=== PATIENT | male | born 1990 | race Caucasian/White ===

== ENCOUNTER 2023-07-24 13:18 | Inpatient (IN) | payer OTHER, SELFPAY ==
--- NOTE | ~2023-07-24 | CT_ITS ---
EXAMINATION: CT SOFT TISSUE NECK WITHOUT CONTRAST CLINICAL INFORMATION: Right facial redness and swelling. Question parotiditis. Abscess. COMPARISON: CT neck 01/11/2012. TECHNIQUE: Helical imaging was performed in the axial plane with generation of coronal and sagittal reformatted images. This CT examination was performed using dose optimization techniques as appropriate, variously including the following: *Automated exposure control *Adjustment of mA and/or kV according to patient size (this includes techniques or standardized protocols for targeted exams where dose is matched to indication/reason for exam; i.e. extremities or head) *Use of iterative reconstruction technique DLP: 593 mGy-cm FINDINGS: The diagnostic accuracy of this examination is limited due to the absence of intravenous contrast. There is asymmetric stranding within the subcutaneous soft tissues primarily within the right infratemporal fossa. The etiology of this finding is uncertain. There is some thickening and inflammation extends along the course of the right parotid duct. No clear evidence of a discrete calcification along the course of the parotid duct. The parotid gland is otherwise grossly symmetric with respect to the contralateral side. There are multiple asymmetrically enlarged right level I and II cervical lymph nodes. Pharyngeal mucosal spaces are symmetric. Parapharyngeal and retromaxillary fat is preserved. Admissions Manager Rn spaces are grossly symmetric. The tongue base and epiglottis are normal. Preepiglottic fat is preserved. Glottic and subglottic airways are patent. The thyroid gland is normal and the remainder of the visualized visceral soft tissues are normal. Lung apices are clear. The aortic arch apex is unremarkable. Carotid spaces are unremarkable. No acute osseous finding. Specifically no worrisome lytic or blastic osseous lesion. Grossly no spinal canal compromise. The skull base is grossly intact. No mastoid or middle ear effusion. Limited visualization of the intracranial anatomy reveals no abnormal finding. CT/CT soft tissue neck wo IV con IMPRESSION: The diagnostic accuracy of this examination is limited due to the absence of intravenous contrast. There is asymmetric stranding within the subcutaneous soft tissues primarily within the right infratemporal fossa consistent with edema or cellulitis. There is some thickening and inflammation extends along the course of the right parotid duct. No clear evidence of a discrete calcification along the course of the parotid duct. The parotid gland is otherwise grossly symmetric with respect to the contralateral side. There are multiple asymmetrically enlarged likely reactive right level I and II cervical lymph nodes.
[2023-07-24 14:23] VITALS: BP 137/85; PULSE 84; RESP 18; TEMP 37.1; O2SAT 97; BMI 26.2
--- NOTE | 2023-07-24 14:58 | ED_ITS ---
HPI - General Adult General Chief complaint: Skin/Abscess/Foreign Body Stated complaint: Dental Abscess Infection Time Seen by Provider: 07/24/23 19:53 Source: patient Mode of arrival: ambulatory Limitations: no limitations History of Present Illness HPI narrative: Patient comes here with redness and swelling of the right temporal area spreading to the right side face started about 3 days ago with fever and chills no dental pain redness is spreading very fast to the right orthodoxy and right side of the neck unable to open mouth widely no open wound no history of MRSA infection Related Data Home Medications Medication Instructions Recorded Confirmed gabapentin 400 mg capsule 400 mg PO TID 07/24/23 07/24/23 ibuprofen 600 mg tablet 600 mg PO Q6H PRN Pain 07/24/23 07/24/23 quetiapine 50 mg tablet 50 mg PO BEDTIME 07/24/23 07/24/23 trazodone 100 mg tablet 100 mg PO BEDTIME PRN Insomnia 07/24/23 07/24/23 Allergies Allergy/AdvReac Type Severity Reaction Status Date / Time coconut Allergy Severe ANAPHYLAXIS Verified 07/24/23 14:23 Penicillins [PENICILLINS] Allergy Unknown HIVES/DIFFICULTY Verified 07/24/23 14:23 BREATHING Review of Systems 2 Review of Systems: Yes all other systems are reviewed and are negative PMFSH Past Medical History Medical History Skin infection Social History Social History Household Members: Other Household Members Other:: [facility] Housing: House Do you presently have visiting nurse or other home services: No Alcohol intake: former Patient Tobacco Use Status: Current everyday Tobacco user Tobacco use type: Cigarette Cigarettes Per Day: 10 Second Hand Smoke Exposure: No service: No Physical Exam ED Vital Signs: Vital Signs - 24 hr 07/24/23 14:23 07/24/23 18:00 Temperature 98.7 F 98.4 F Pulse Rate 84 80 Respiratory Rate 18 16 Blood Pressure 137/85 139/86 Pulse Oximetry 97 100 Oxygen Delivery Method Room Air Room Air BMI result Body Mass Index 26.2 Appearance: Alert. Oriented X3. No acute distress. ENT: Pharynx normal. Oral Mucosa moist no gum tenderness or swelling no dental pain diffuse erythematous swelling with induration of the right pre auricle and orthodoxy area tympanic membrane intact mastoid nontender Neck: Normal inspection. Neck supple. CVS: Normal heart rate and rhythm. Pulses normal. Respiratory: No respiratory distress. Equal air entry bilateral, Abdomen: Soft and nontender. Bowel sounds are present, no mass palpable, no CVA tenderness Skin: Skin warm and dry. Facial cellulitis as described Normal skin turgor. Extremities: No lower extremity edema. No calf tenderness Neuro: Oriented X 3. Course Course Course Narrative: RME: 32 yold male presents to the ED for right sided facial swelling/redness in front of ear and behing right ear after hit right side of face on door while bending now. patient states no chest pain or shortness of breath. Positive for tenderness and redness on mastoid of right ear and redness/swelling in front of right rear. negative for neck swelling or jaw swelling. labs, mastoid and soft tissude ortdered. most likely cellulitlits. Medications Administered Generic Name Dose Route Start Last Admin Trade Name Freq PRN Reason Stop Dose Admin Enoxaparin Sodium 40 mg 07/24/23 21:00 07/26/23 20:49 Enoxaparin Sodium 40 Mg/0.4 Ml Syringe SUBCUT Not Given Q24H MELA Gabapentin 400 mg 07/24/23 21:00 07/27/23 15:30 Gabapentin 400 Mg Capsule PO 400 mg TID MELA Administration Hydromorphone HCl 1 mg 07/27/23 07:31 07/27/23 18:09 Hydromorphone Hcl 1 Mg/Ml Syringe IVPUSH 1 mg Q2H PRN Administration severe pain Protocol Metronidazole 500 mg in 100 mls @ 100 mls/hr 07/25/23 08:15 07/27/23 10:31 Flagyl IV Infused Q12H MELA Infusion Levofloxacin 500 mg in 100 mls @ 100 mls/hr 07/26/23 13:30 07/27/23 15:15 Levaquin IV Infused Q24H MELA Infusion Linezolid 600 mg in 300 mls @ 300 mls/hr 07/26/23 15:00 07/27/23 17:11 Zyvox/D5w IV Infused Q12H MELA Infusion Ketorolac Tromethamine 30 mg 07/24/23 20:18 07/27/23 06:52 Ketorolac Tromethamine 30 Mg/Ml Vial IVPUSH 30 mg Q6H PRN Administration Pain, Moderate(Pain Scale 4-6) Morphine Sulfate 2 mg 07/25/23 08:06 07/27/23 11:52 Morphine Sulfate 2 Mg/Ml Cartridge IVPUSH 2 mg Q4H PRN Administration moderate pain Protocol Quetiapine Fumarate 50 mg 07/24/23 21:00 07/26/23 20:49 Quetiapine Fumarate 50 Mg Tablet PO Not Given BEDTIME MELA Sodium Chloride 3 ml 07/25/23 00:00 07/27/23 17:09 0.9 % Sodium Chloride Flush 3 Ml Syringe IVFLUSH 3 ml QSHIFT MELA Administration Tramadol HCl 50 mg 07/24/23 21:35 07/25/23 14:30 Tramadol Hcl 50 Mg Tablet PO 50 mg Q4H PRN Administration Pain, Moderate(Pain Scale 4-6) Trazodone HCl 100 mg 07/24/23 21:00 07/26/23 20:49 Trazodone Hcl 100 Mg Tablet PO Not Given BEDTIME MELA Discontinued Medications Generic Name Dose Route Start Last Admin Trade Name Freq PRN Reason Stop Dose Admin Hydromorphone HCl 1 mg 07/25/23 13:06 07/27/23 05:55 Hydromorphone Hcl 1 Mg/Ml Syringe IVPUSH 1 mg Q4H PRN Administration severe pain Protocol Sodium Chloride 1,000 mls @ 999 mls/hr 07/24/23 20:03 07/25/23 00:14 Ns IV 07/24/23 21:03 Infused .Q1H1M ONE Infusion Vancomycin HCl 2,000 mg in 500 mls @ 250 mls/hr 07/24/23 20:15 07/25/23 01:14 Vancomycin/Ns IV 07/24/23 22:14 Infused ONCE ONE Infusion Vancomycin HCl 1,500 mg/ 500 mls @ 333.333 mls/hr 07/25/23 10:00 07/25/23 23:45 Sodium Chloride IV Infused Q12H MELA Infusion Ceftriaxone Sodium 1 gm/ 50 mls @ 100 mls/hr 07/25/23 08:15 07/26/23 08:14 Sodium Chloride IV Infused Q24H MELA Infusion Vancomycin HCl 1,250 mg/ 250 mls @ 166.667 mls/hr 07/26/23 10:00 07/26/23 11:52 Sodium Chloride IV Infused Q8H MELA Infusion Influenza Virus Vaccine 0.5 ml 07/25/23 20:00 07/25/23 19:28 Flu Vacc [id number](6mos Up)/Pf 0.5 Ml Syringe IM 07/25/23 20:01 0.5 ml .ONCE ONE Administration Lidocaine/Epinephrine 30 ml 07/26/23 12:09 07/26/23 16:11 Lidocaine Hcl 1% Pf/Epi 1:200,000 30 Ml Vial SUBCUT 07/26/23 12:10 Not Given ONCE ONE Lidocaine/Epinephrine 30 ml 07/26/23 15:45 07/26/23 16:11 Lidocaine Hcl 2%/Epi 1:100,000 50 Ml Vial SUBCUT 07/26/23 15:46 30 ml ONCE ONE Administration Lorazepam 2 mg 07/26/23 11:11 07/26/23 11:19 Lorazepam 2 Mg/Ml Vial IVPUSH 07/26/23 11:12 2 mg ONCE ONE Administration Lorazepam 2 mg 07/26/23 15:06 07/26/23 15:47 Lorazepam 2 Mg/Ml Vial IM 07/26/23 15:07 Not Given ONCE ONE Lorazepam 1 mg 07/27/23 06:05 07/27/23 06:19 Lorazepam 2 Mg/Ml Vial IVPUSH 07/27/23 06:06 1 mg STAT STA Administration Methylprednisolone Sodium Succinate 60 mg 07/25/23 14:38 07/25/23 15:14 Methylprednisolone Sod Succ 125 Mg/2 Ml Vial IVPUSH 07/25/23 14:39 60 mg ONCE ONE Administration Olanzapine 10 mg 07/26/23 14:27 07/26/23 14:50 Olanzapine 10 Mg Vial IM 07/26/23 14:28 10 mg STAT STA Administration Medical Decision Making Medical Decision Making MDM Narrative: Patient has significant cellulitis of the right face likely Staph spread in last 3 days will admit patient for IV antibiotic Differential Diagnosis Differential Diagnoses: The differential diagnosis associated with the presentation includes Cellulitis/abscess Admission/Observation Consideration of admission/observation: Escalation of care including admission/observation considered Consult Healthcare Provider Management of the patient was discussed with: Hospitalist Lab Data MDM Lab Attestation statement: I reviewed the patient's lab results. 07/27/23 06:05 07/27/23 06:05 Labs: Lab Results 07/24/23 07/24/23 Range/Units 15:09 16:32 WBC 14.2 H (4.8-10.8) X10*3/uL RBC 4.32 L (4.60-5.80) X10*6/uL Hgb 14.3 (14.0-18.0) g/dl Hct 41.3 L (42.0-52.0) % MCV 95.6 (80.0-98.0) fL MCH 33.1 H (27.0-33.0) pg MCHC 34.6 (31.0-36.0) g/dl RDW 13.2 (11.0-16.0) % Plt Count 253 (160-400) X10*3/uL MPV 8.7 L (9.4-12.4) fL Immature Gran % (Auto) 0.3 (0.0-0.4) % Neut % (Auto) 80.7 H (45-73) % Lymph % (Auto) 10.5 L (20-40) % [place] % (Auto) 7.5 (2-11) % Eos % (Auto) 0.6 (0-4) % Baso % (Auto) 0.4 (0-2) % Lymph # (Auto) 1.5 (1.2-4.9) X10*3/uL [place] # (Auto) 1.1 (0.1-1.2) X10*3/uL Eos # (Auto) 0.1 (0.0-0.4) X10*3/uL Baso # (Auto) 0.1 (0.0-0.2) X10*3/uL Abs Immat Gran (auto) 0.04 H (0.00-0.03) X10*3/uL Absolute Neuts (auto) 11.4 H (2.0-8.3) x10*3/uL Absolute Nucleated RBC 0.000 (0.0-0.012) X10*3/uL Nucleated RBC % (auto) 0.0 (0.0-0.2) /100WBC Sodium 138 (135-145) mmol/L Potassium 4.6 (3.3-5.1) mmol/L Chloride 107 (96-108) mmol/L Carbon Dioxide 25 (22-29) mmol/L Anion Gap 11 L (12-20) BUN 9 (9-16) mg/dL Creatinine 0.77 (0.5-1.4) mg/dL Estim Creat Clear Calc 157.1 Estimated GFR > 60 Random Glucose 88 (60-115) mg/dL Calcium 9.3 (8.4-10.2) mg/dL Total Bilirubin 0.8 (0.0-1.0) mg/dL AST 19 (5-37) U/L ALT 27 (0-40) U/L Alkaline Phosphatase 63 (39-117) U/L Total Protein 6.9 (6.5-8.0) g/dL Albumin 4.1 (3.5-5.0) g/dL Urine Opiates Screen Not Detected (Not Detect) Urine Fentanyl Screen Not Detected (Not Detect) Ur Barbiturates Screen Not Detected (Not Detect) Ur Phencyclidine Scrn Not Detected (Not Detect) Ur Amphetamines Screen Not Detected (Not Detect) U Benzodiazepines Scrn Not Detected (Not Detect) Urine Cocaine Screen Not Detected (Not Detect) U Marijuana (THC) Screen Not Detected (Not Detect) Radiology Impression Discussion of test interpretation with radiology: I have reviewed the radiologist's reading. Radiologist Impression: RDER #: [id number] CT/CT soft tissue neck wo IV con IMPRESSION: The diagnostic accuracy of this examination is limited due to the absence of intravenous contrast. There is asymmetric stranding within the subcutaneous soft tissues primarily within the right infratemporal fossa consistent with edema or cellulitis. There is some thickening and inflammation extends along the course of the right parotid duct. No clear evidence of a discrete calcification along the course of the parotid duct. The parotid gland is otherwise grossly symmetric with respect to the contralateral side. There are multiple asymmetrically enlarged likely reactive right level I and II cervical lymph nodes. Discharge Plan Discharge Clinical Impression: Cellulitis Patient Disposition: Admitted As Inpatient Interventions: Admission Worksheet (ED) Last Done: 07/25/23 14:46 Discharge Date/Time: 07/25/23 14:56
[2023-07-24 15:23] LABS: MANUAL DIFF FLAG NO
[2023-07-24 15:27] LABS: Basophils Absolute Auto 0.1 X10*3/uL (0.0-0.2); Basophils Percent Auto 0.4 % (0-2); Eosinophils Absolute Auto 0.1 X10*3/uL (0.0-0.4); Eosinophils Percent Auto 0.6 % (0-4); Hematocrit 41.3 % (42.0-52.0); Hemoglobin 14.3 g/dl (14.0-18.0); Imm Gran Abs Auto 0.04 X10*3/uL (0.00-0.03); Imm Gran Pct Auto 0.3 % (0.0-0.4); Lymphocytes Absolute Auto 1.5 X10*3/uL (1.2-4.9); Lymphocytes Percent Auto 10.5 % (20-40); Mean Corpuscular HGB Conc 34.6 g/dl (31.0-36.0); Mean Corpuscular Hemoglobin 33.1 pg (27.0-33.0); Mean Corpuscular Volume 95.6 fL (80.0-98.0); Mean Platelet Volume 8.7 fL (9.4-12.4); Monocytes Absolute Auto 1.1 X10*3/uL (0.1-1.2); Monocytes Percent Auto 7.5 % (2-11); Neutrophils Absolute Auto 11.4 x10*3/uL (2.0-8.3); Neutrophils Percent Auto 80.7 % (45-73); Platelet Count 253 X10*3/uL (160-400); Red Blood Count 4.32 X10*6/uL (4.60-5.80); Red Cell Distribution Width 13.2 % (11.0-16.0); White Blood Count 14.2 X10*3/uL (4.8-10.8)
[2023-07-24 15:40] LABS: Alanine Aminotransferase 27 U/L (0-40); Albumin Level 4.1 g/dL (3.5-5.0); Alkaline Phosphatase 63 U/L (39-117); Anion Gap 11 (12-20); Aspartate Amino Transferase 19 U/L (5-37); Bilirubin Total 0.8 mg/dL (0.0-1.0); Blood Urea Nitrogen 9 mg/dL (9-16); Calcium 9.3 mg/dL (8.4-10.2); Carbon Dioxide 25 mmol/L (22-29); Chloride 107 mmol/L (96-108); Creatinine Clr Calc Pharmacy 157.1; Estimated Glomerular Filt Rate > 60; Glucose Random 88 mg/dL (60-115); Potassium 4.6 mmol/L (3.3-5.1); Sodium 138 mmol/L (135-145); Total Protein 6.9 g/dL (6.5-8.0)
[2023-07-24 16:47] LABS: Amphetamine Screen Urine Not Detected (Not Detect); Barbiturates, Urine Not Detected (Not Detect); Benzodiazepines Screen Urine Not Detected (Not Detect); Cannabinoid Screen Urine Not Detected (Not Detect); Cocaine Screen Urine Not Detected (Not Detect); Fentanyl, urine Not Detected (Not Detect); Opiate Screen Urine Not Detected (Not Detect); Phencyclidine Screen Urine Not Detected (Not Detect)
[2023-07-24 18:00] VITALS: BP 139/86; PULSE 80; RESP 16; TEMP 36.9; O2SAT 100
--- NOTE | 2023-07-24 19:28 | PC.NURSE ---
Patient reports 3 days ago having issue with his ear/pain causing dizziness which lead to a fall. Since then he now has progressively worse swelling to R-face, red, hot to touch. Pt reporting 10/10 pain to R throat, ear, jaw and nondenominational, difficulty swallowing and speaking. Pt states Ice seems to making it worse. no known fever but woke up in cold sweats and 2 episodes of vomiting.
[2023-07-24 20:02] VITALS: BP 138/92; PULSE 73; RESP 16; TEMP 36.8; O2SAT 99
--- NOTE | 2023-07-24 20:03 | P.HPHOSP_ITS ---
History of Present Illness Date of Service: 07/24/23 Chief Complaint: Skin infection This is 32-year-old male with pertinent history of skin infection, mood disorder, tobacco use disorder who presents to the emergency department for redness, swelling of the right side of his face. Patient states it started 3 days prior to presentation. He has had multiple finger infections in the past. No history of IV drug use. Does not know why he gets repeated skin infections. The facial infection started spontaneously and has been progressive over the last 3 days. It is red, warm and tender. No drainage. Patient admits associated chills, sweating, nausea and vomiting. No documented fever. No chest discomfort, palpitations, shortness of breath, abdominal pain, changes in urinary or bowel habits. In the emergency department, imaging without focal fluid collection. Review of Systems 2 Constitutional: Constitutional: Reports chills Cardiovascular: Cardiovascular: Reports no additional cardiovascular complaints Respiratory: Respiratory: Reports no additional respiratory complaints Gastrointestinal: Gastrointestinal: Reports nausea Genitourinary: Genitourinary: Reports no additional male genitourinary complaints Musculoskeletal: Musculoskeletal: Reports no additional musculoskeletal complaints [facility] Medical History Skin infection Pertinent family history: No family history of early CAD Social History Alcohol intake: former Smoked in Last 30 Days: Yes Use of substances other than those prescribed or required for medical reasons: No Any prior treatment program specific to substance use: No Advance Directives: No Advance Directives Information Provided: No Meds Allergies Allergy/AdvReac Type Severity Reaction Status Date / Time coconut Allergy Severe ANAPHYLAXIS Verified 07/24/23 14:23 Penicillins [PENICILLINS] Allergy Unknown HIVES/DIFFICULTY Verified 07/24/23 14:23 BREATHING Home Medications Medication Instructions Recorded Confirmed Last Taken Type gabapentin 400 mg capsule 400 mg PO TID 07/24/23 07/24/23 Unknown History ibuprofen 600 mg tablet 600 mg PO Q6H PRN Pain 07/24/23 07/24/23 Unknown History quetiapine 50 mg tablet 50 mg PO BEDTIME 07/24/23 07/24/23 Unknown History trazodone 100 mg tablet 100 mg PO BEDTIME PRN Insomnia 07/24/23 07/24/23 Unknown History Physical Exam 2 Vital Signs and Narrative: Vital Signs: Last Vital Signs Temp 98.4 F 07/24/23 18:00 Pulse 80 07/24/23 18:00 Resp 16 07/24/23 18:00 BP 139/86 07/24/23 18:00 Pulse Ox 100 07/24/23 18:00 O2 Del Method Room Air 07/24/23 18:00 BMI result Body Mass Index 26.2 Middle-aged male lying in bed in no distress Neck supple, no JVD Erythema, swelling, tenderness and warmth seen over the right face below the right ear Regular rate and rhythm, S1-S2 heard Regular breath sounds bilaterally, no wheezing or crackles appreciated Abdomen soft nontender, no guarding, no rigidity Patient is awake, alert and oriented to self, place, time and person ; no focal motor deficit Psych: Normal mood No pedal edema Results Labs 07/24/23 15:09 07/24/23 15:09 Labs: Laboratory Results - last 24 hr 07/24/23 07/24/23 15:09 16:32 MCV 95.6 MCH 33.1 H MCHC 34.6 RDW 13.2 Plt Count 253 MPV 8.7 L Immature Gran % (Auto) 0.3 Neut % (Auto) 80.7 H Lymph % (Auto) 10.5 L [place] % (Auto) 7.5 Eos % (Auto) 0.6 Baso % (Auto) 0.4 Lymph # (Auto) 1.5 [place] # (Auto) 1.1 Eos # (Auto) 0.1 Baso # (Auto) 0.1 Abs Immat Gran (auto) 0.04 H Absolute Neuts (auto) 11.4 H Absolute Nucleated RBC 0.000 Nucleated RBC % (auto) 0.0 Anion Gap 11 L Estim Creat Clear Calc 157.1 Estimated GFR > 60 Random Glucose 88 Calcium 9.3 Total Bilirubin 0.8 AST 19 ALT 27 Alkaline Phosphatase 63 Total Protein 6.9 Albumin 4.1 Urine Opiates Screen Not Detected Urine Fentanyl Screen Not Detected Ur Barbiturates Screen Not Detected Ur Phencyclidine Scrn Not Detected Ur Amphetamines Screen Not Detected U Benzodiazepines Scrn Not Detected Urine Cocaine Screen Not Detected U Marijuana (THC) Screen Not Detected Imaging Radiologist's Impressions: Impressions Soft Tissue Neck CT 07/24/23 15:31 IMPRESSION: The diagnostic accuracy of this examination is limited due to the absence of intravenous contrast. There is asymmetric stranding within the subcutaneous soft tissues primarily within the right infratemporal fossa consistent with edema or cellulitis. There is some thickening and inflammation extends along the course of the right parotid duct. No clear evidence of a discrete calcification along the course of the parotid duct. The parotid gland is otherwise grossly symmetric with respect to the contralateral side. There are multiple asymmetrically enlarged likely reactive right level I and II cervical lymph nodes. Assessment and Plan (1) Cellulitis: Status: Acute Plan This is 32-year-old male with pertinent history of skin infection, mood disorder, tobacco use disorder who presents to the emergency department for redness, swelling of the right side of his face. #. Cellulitis: Will admit patient and initiate empiric IV vancomycin due to extensive cellulitis. No sepsis. Resuscitated with IV crystalloids. Follow blood culture #. Mood disorder: Continue home mood stabilizers #. Tobacco use disorder: Counseled regarding cessation. Refused nicotine patch DVT prophylaxis: Lovenox Full code Admit as inpatient and will require two night minimum hospital stay for IV antibiotics Time Spent With Patient Time: Total time managing care of this patient today ____ minutes. Quality Stroke Does the patient have a stroke diagnosis?: No VTE Prior VTE?: No VTE Risk Level:: Medical - moderate - high VTE Device Contraindication: Treatment Not Indicated VTE Drug Contraindication: N/A - Med Ordered
--- NOTE | 2023-07-24 20:17 | PHA.MEDREC ---
Pharmacy Consult ? Medication Reconciliation Pharmacy has completed the medication reconciliation. Patient reported medications. Reports he does not like how adderall makes him feel so he has not taken it in 8 days. Evangelina Sauceda, PharmD
[2023-07-24] MEDS: Ketorolac Tromethamine 30 MG/ML VIAL IVPUSH (20:59)
[2023-07-24] MEDS: Enoxaparin Sodium 40 MG/0.4 ML SYRINGE SUBCUT (21:00)
[2023-07-24] MEDS: QUEtiapine Fumarate 50 MG TABLET PO (21:00)
[2023-07-24] MEDS: Gabapentin 400 MG CAPSULE PO (21:00)
[2023-07-24] MEDS: traZODone HCL 100 MG TABLET PO (21:00)
[2023-07-24] MEDS: 0.9 % Sodium Chloride 1,000 ML 999 ML IV (21:01)
[2023-07-24] MEDS: vancomycin/NS 2,000 MG/500 ML PLAST..BAG 250 MG IV (21:33)
[2023-07-24 21:50] LABS: Lactic Acid 0.9 mmol/L (0.5-2.0)
--- NOTE | 2023-07-24 22:10 | PHA.PROG ---
Admission Date/Time: July 24, 2023 20:02 Indication: Sepsis - celulitis Weight in k.5 kg Adjusted body weight in K.32 kg [place] body weight in K.2 kg Obesity Dosing Indication % IBW: 112% Serum Creatinine - Last 168 Hours 07/24/23 15:09 Creatinine 0.77 Estimated CrCl and GFR - Last 168 Hours 07/24/23 15:09 Estim Creat Clear Calc 157.1 Estimated GFR > 60 Vancomycin Loading Dose: 2000 mg Current Vancomycin Dosing Regimen: 1500 mg Q12H Date and Time for next Vancomycin Level to be drawn: 07/26 @ 0800 Pharmacist Comments on Vancomycin Plan: patient received an adequate load dose in the ER 07/24 @ 2133 Maintenance dose vancomycin 1500 mg Q12H is scheduled to start 07/25 @ 1000 Level is scheduled prior to the 4th dose Pharmacy will monitor renal function daily Evangelina Sauceda, Jimmie Vancomycin dosing will take advantage of [employer] as a clinical decision support tool that uses Bayesian modeling to calculate individual patient's pharmacokinetic parameters and forecast the patient's drug concentration time course with the target goal AUC 24 range of 400 - 600 mg/L/hr.
[2023-07-24] MEDS: traMADoL HCL 50 MG TABLET PO (23:46)
--- NOTE | 2023-07-25 00:10 | PC.NURSE ---
Assumed care of patient who presents with Cellulitis of the right side of his face. Patient is alert and oriented, able to ambulate from stretcher to bed. Patient eating a sandwich at this time. Cooperative with care.
[2023-07-25 00:13] VITALS: BP 128/73; PULSE 74; RESP 18; TEMP 36.4; O2SAT 97
[2023-07-25] MEDS: 0.9 % Sodium Chloride Flush 3 ML SYRINGE IVFLUSH ×3 (01:10→19:31)
--- NOTE | 2023-07-25 03:22 | PC.NURSE ---
Assumed care of pt. Pt lying on stretcher, respirations even and unlabored, no acute distress at this time. Continuing plan of care.
[2023-07-25 05:41] LABS: MANUAL DIFF FLAG NO
[2023-07-25 05:46] LABS: Basophils Absolute Auto 0.1 X10*3/uL (0.0-0.2); Basophils Percent Auto 0.5 % (0-2); Eosinophils Absolute Auto 0.2 X10*3/uL (0.0-0.4); Eosinophils Percent Auto 1.6 % (0-4); Hematocrit 37.9 % (42.0-52.0); Hemoglobin 12.9 g/dl (14.0-18.0); Imm Gran Abs Auto 0.03 X10*3/uL (0.00-0.03); Imm Gran Pct Auto 0.3 % (0.0-0.4); Lymphocytes Absolute Auto 2.3 X10*3/uL (1.2-4.9); Lymphocytes Percent Auto 20.8 % (20-40); Mean Corpuscular Hemoglobin 33.1 pg (27.0-33.0); Mean Corpuscular Volume 97.2 fL (80.0-98.0); Mean Platelet Volume 8.6 fL (9.4-12.4); Monocytes Percent Auto 9.4 % (2-11); Neutrophils Absolute Auto 7.4 x10*3/uL (2.0-8.3); Neutrophils Percent Auto 67.4 % (45-73); Platelet Count 220 X10*3/uL (160-400); Red Cell Distribution Width 13.4 % (11.0-16.0)
[2023-07-25 06:05] LABS: Anion Gap 10 (12-20); Blood Urea Nitrogen 11 mg/dL (9-16); Calcium 8.6 mg/dL (8.4-10.2); Carbon Dioxide 21 mmol/L (22-29); Chloride 112 mmol/L (96-108); Creatinine Clr Calc Pharmacy 155.1; Estimated Glomerular Filt Rate > 60; Glucose Random 93 mg/dL (60-115); Potassium 3.9 mmol/L (3.3-5.1); Sodium 139 mmol/L (135-145)
[2023-07-25] MEDS: Ketorolac Tromethamine 30 MG/ML VIAL IVPUSH ×3 (08:08→19:59)
[2023-07-25] MEDS: Gabapentin 400 MG CAPSULE PO ×3 (08:08→19:30)
[2023-07-25] MEDS: traMADoL HCL 50 MG TABLET PO ×2 (08:08→14:30)
--- NOTE | 2023-07-25 08:25 | PC.NURSE ---
Alert and oriented, patient rang call gonzalez stating he wants something stronger than the medication ordered for pain. MD notified and new orders obtained. Right side of face warm and tender to touch
[2023-07-25] MEDS: cefTRIAXone sodium 1 GM in 0.9 % Sodium Chloride 50 ML IV (08:39)
[2023-07-25] MEDS: Morphine Sulfate 2 MG/ML CARTRIDGE IVPUSH ×4 (08:39→21:45)
[2023-07-25] MEDS: metroNIDAZOLE/NS 500 MG/100 ML PIGGYBACK 100 MG IV ×2 (09:16→19:28)
[2023-07-25] MEDS: vancomycin HCL 1,500 MG in 0.9 % Sodium Chloride 500 ML 333.33 MG IV ×2 (10:12→21:41)
--- NOTE | 2023-07-25 12:00 | HO.PM.IMPN ---
Subjective Subjective Date of Service: 07/25/23 Interval History: right facial pain and swelling Physical Exam Vital Signs: Vital Signs: Last Vital Signs Temp 97.6 F 07/25/23 00:13 Pulse 74 07/25/23 00:13 Resp 18 07/25/23 00:13 BP 128/73 07/25/23 00:13 Pulse Ox 97 07/25/23 00:13 O2 Del Method Room Air 07/25/23 00:13 BMI result Body Mass Index 26.2 right cheek erythema, edema Objective Data Active Medications Acetaminophen (Acetaminophen 325 Mg Tablet) 650 mg PO Q6H PRN PRN Reason: Pain, Mild (Pain Scale 1-3) Enoxaparin Sodium (Enoxaparin Sodium 40 Mg/0.4 Ml Syringe) 40 mg SUBCUT Q24H [facility] Last Admin: 07/24/23 21:00 Dose: 40 mg Documented By: MINGO Gabapentin (Gabapentin 400 Mg Capsule) 400 mg PO TID [facility] Last Admin: 07/25/23 08:08 Dose: 400 mg Documented By: JAYDEN Vancomycin HCl 1,500 mg/ (Sodium Chloride) 500 mls @ 333.333 mls/hr IV Q12H [facility] Last Admin: 07/25/23 10:12 Dose: 333.33 mls/hr Documented By: JAYDEN Ceftriaxone Sodium 1 gm/ (Sodium Chloride) 50 mls @ 100 mls/hr IV Q24H [facility] Last Infusion: 07/25/23 09:21 Dose: Infused Documented By: JAYDEN Metronidazole (Flagyl) 500 mg in 100 mls @ 100 mls/hr IV Q12H [facility] Last Infusion: 07/25/23 10:19 Dose: Infused Documented By: JAYDEN Ketorolac Tromethamine (Ketorolac Tromethamine 30 Mg/Ml Vial) 30 mg IVPUSH Q6H PRN PRN Reason: Pain, Moderate(Pain Scale 4-6) Last Admin: 07/25/23 08:08 Dose: 30 mg Documented By: JAYDEN Melatonin (Melatonin 3 Mg Tablet) 6 mg PO BEDTIME PRN PRN Reason: Insomnia Morphine Sulfate (Morphine Sulfate 2 Mg/Ml Cartridge) 2 mg IVPUSH Q4H PRN; Protocol PRN Reason: moderate pain Last Admin: 07/25/23 08:39 Dose: 2 mg Documented By: JAYDEN Ondansetron HCl (Ondansetron Hcl 4 Mg/2 Ml Vial) 4 mg IVPUSH Q8H PRN PRN Reason: Nausea and Vomiting Pharmacy Consult (Consult Rx Vancomycin Dosing) 1 each MISCELLANE DAILY PRN PRN Reason: Consult order Quetiapine Fumarate (Quetiapine Fumarate 50 Mg Tablet) 50 mg PO BEDTIME [facility] Last Admin: 07/24/23 21:00 Dose: 50 mg Documented By: MINGO Sodium Chloride (0.9 % Sodium Chloride Flush 3 Ml Syringe) 3 ml IVFLUSH QSHIFT [facility] Last Admin: 07/25/23 09:06 Dose: Not Given Documented By: JAYDEN Non-Admin Reason: IV Running Tramadol HCl (Tramadol Hcl 50 Mg Tablet) 50 mg PO Q4H PRN PRN Reason: Pain, Moderate(Pain Scale 4-6) Last Admin: 07/25/23 08:08 Dose: 50 mg Documented By: JAYDEN Trazodone HCl (Trazodone Hcl 100 Mg Tablet) 100 mg PO BEDTIME [facility] Last Admin: 07/24/23 21:00 Dose: 100 mg Documented By: MINGO Labs 07/25/23 05:16 07/25/23 05:16 Labs: Laboratory Results - last 24 hr 07/24/23 07/24/23 07/24/23 15:09 16:32 21:14 MCV 95.6 MCH 33.1 H MCHC 34.6 RDW 13.2 Plt Count 253 MPV 8.7 L Immature Gran % (Auto) 0.3 Neut % (Auto) 80.7 H Lymph % (Auto) 10.5 L [place] % (Auto) 7.5 Eos % (Auto) 0.6 Baso % (Auto) 0.4 Lymph # (Auto) 1.5 [place] # (Auto) 1.1 Eos # (Auto) 0.1 Baso # (Auto) 0.1 Abs Immat Gran (auto) 0.04 H Absolute Neuts (auto) 11.4 H Absolute Nucleated RBC 0.000 Nucleated RBC % (auto) 0.0 Anion Gap 11 L Estim Creat Clear Calc 157.1 Estimated GFR > 60 Random Glucose 88 Lactic Acid 0.9 Calcium 9.3 Total Bilirubin 0.8 AST 19 ALT 27 Alkaline Phosphatase 63 Total Protein 6.9 Albumin 4.1 Hold Yellow Top See Note Urine Opiates Screen Not Detected Urine Fentanyl Screen Not Detected Ur Barbiturates Screen Not Detected Ur Phencyclidine Scrn Not Detected Ur Amphetamines Screen Not Detected U Benzodiazepines Scrn Not Detected Urine Cocaine Screen Not Detected U Marijuana (THC) Screen Not Detected 07/25/23 05:16 MCV 97.2 MCH 33.1 H MCHC 34.0 RDW 13.4 Plt Count 220 MPV 8.6 L Immature Gran % (Auto) 0.3 Neut % (Auto) 67.4 Lymph % (Auto) 20.8 [place] % (Auto) 9.4 Eos % (Auto) 1.6 Baso % (Auto) 0.5 Lymph # (Auto) 2.3 [place] # (Auto) 1.0 Eos # (Auto) 0.2 Baso # (Auto) 0.1 Abs Immat Gran (auto) 0.03 Absolute Neuts (auto) 7.4 Absolute Nucleated RBC 0.000 Nucleated RBC % (auto) 0.0 Anion Gap 10 L Estim Creat Clear Calc 155.1 Estimated GFR > 60 Random Glucose 93 Lactic Acid Calcium 8.6 D Total Bilirubin AST ALT Alkaline Phosphatase Total Protein Albumin Hold Yellow Top Urine Opiates Screen Urine Fentanyl Screen Ur Barbiturates Screen Ur Phencyclidine Scrn Ur Amphetamines Screen U Benzodiazepines Scrn Urine Cocaine Screen U Marijuana (THC) Screen Assessment and Plan (1) Skin infection: Status: Acute Plan 32M pmh mood disorder, presented with swelling and erythema on right side of face right parotiditis, acute vanc, rocephin, flagyl follow up cultures id eval pain control mood disorder seroquel dvt prophylaxis - lovenox full code reason for continued hospitalization:iv abd for significant infection and swelling in high risk area (face) Time Spent With Patient Time: Total time managing care of this patient today ____ minutes. Quality Stroke Does the patient have a stroke diagnosis?: No VTE Prior VTE?: No VTE Risk Level:: Medical - moderate - high VTE Device Contraindication: Treatment Not Indicated VTE Drug Contraindication: N/A - Med Ordered
--- NOTE | 2023-07-25 13:00 | PC.NURSE ---
Patient medicated with prn morphine, 5 minutes later patient became agitated yelling that he needs to leave because his face hurts. Patient packed up all belongings and refused for IV to be removed. Stating he will go home and be fine. Message sent to provider, provider at bedside to assess patient. Mother in to visit patient.
[2023-07-25] MEDS: HYDROmorphone HCl 1 MG/ML SYRINGE IVPUSH ×3 (13:11→22:45)
--- NOTE | 2023-07-25 13:22 | PC.NURSE ---
Patient successfully re-directed to stay to complete course of IV abt. Patient stating he is angry that tomorrow is his birthday and he will be stuck in the hospital.
[2023-07-25 14:29] VITALS: BP 126/84; PULSE 87; RESP 19; TEMP 36.1; O2SAT 94
--- NOTE | 2023-07-25 14:47 | PC.NURSE ---
Report given to accepting unit. patient with no s/s of pain or discomfort. Ambulating on unit, fluids and food provided at patients request. Aware he is being transferred to room 384.
[2023-07-25] MEDS: methylPREDNISolone Sod Succ 125 MG/2 ML VIAL 60 MG IVPUSH (15:14)
[2023-07-25 15:15] VITALS: BP 150/81; PULSE 86; RESP 17; TEMP 37.2; O2SAT 96
[2023-07-25 15:26] VITALS: BP 132/62; PULSE 81; RESP 16; TEMP 36.9; O2SAT 94
--- NOTE | 2023-07-25 15:26 | W.PM.IDCN ---
History of Present Illness Data of Consult Service Date: 07/25/23 Requesting physician: Ahmet Mar Primary Care Provider: None Physician HPI Reason for consult: parotitis He presents with right ear discomfort and swelling. He has right ear warmth and swelling for three days worsening. He has had right and left teeth pain and had removal three and five months ago. Review of Systems Review of Systems: Yes all other systems are reviewed and are negative ENT: Reports ear discharge PMFSH Past Medical History Medical History Skin infection Family History Family history: reviewed and not pertinent Social History Social History Household Members: Other Household Members Other:: fpc Housing: House Do you presently have visiting nurse or other home services: No Alcohol intake: former Patient Tobacco Use Status: Current everyday Tobacco user Tobacco use type: Cigarette Cigarettes Per Day: 10 Second Hand Smoke Exposure: No Meds Allergies Allergy/AdvReac Type Severity Reaction Status Date / Time coconut Allergy Severe ANAPHYLAXIS Verified 07/24/23 14:23 Penicillins [PENICILLINS] Allergy Unknown HIVES/DIFFICULTY Verified 07/24/23 14:23 BREATHING Active Medications: Current Medications Acetaminophen (Acetaminophen 325 Mg Tablet) 650 mg PO Q6H PRN PRN Reason: Pain, Mild (Pain Scale 1-3) Enoxaparin Sodium (Enoxaparin Sodium 40 Mg/0.4 Ml Syringe) 40 mg SUBCUT Q24H [facility] Last Admin: 07/24/23 21:00 Dose: 40 mg Gabapentin (Gabapentin 400 Mg Capsule) 400 mg PO TID [facility] Last Admin: 07/25/23 13:11 Dose: 400 mg Hydromorphone HCl (Hydromorphone Hcl 1 Mg/Ml Syringe) 1 mg IVPUSH Q4H PRN; Protocol PRN Reason: severe pain Last Admin: 07/25/23 13:11 Dose: 1 mg Vancomycin HCl 1,500 mg/ (Sodium Chloride) 500 mls @ 333.333 mls/hr IV Q12H [facility] Last Infusion: 07/25/23 12:43 Dose: Infused Ceftriaxone Sodium 1 gm/ (Sodium Chloride) 50 mls @ 100 mls/hr IV Q24H [facility] Last Infusion: 07/25/23 09:21 Dose: Infused Metronidazole (Flagyl) 500 mg in 100 mls @ 100 mls/hr IV Q12H [facility] Last Infusion: 07/25/23 10:19 Dose: Infused Ketorolac Tromethamine (Ketorolac Tromethamine 30 Mg/Ml Vial) 30 mg IVPUSH Q6H PRN PRN Reason: Pain, Moderate(Pain Scale 4-6) Last Admin: 07/25/23 14:13 Dose: 30 mg Melatonin (Melatonin 3 Mg Tablet) 6 mg PO BEDTIME PRN PRN Reason: Insomnia Morphine Sulfate (Morphine Sulfate 2 Mg/Ml Cartridge) 2 mg IVPUSH Q4H PRN; Protocol PRN Reason: moderate pain Last Admin: 07/25/23 12:47 Dose: 2 mg Ondansetron HCl (Ondansetron Hcl 4 Mg/2 Ml Vial) 4 mg IVPUSH Q8H PRN PRN Reason: Nausea and Vomiting Pharmacy Consult (Consult Rx Vancomycin Dosing) 1 each MISCELLANE DAILY PRN PRN Reason: Consult order Quetiapine Fumarate (Quetiapine Fumarate 50 Mg Tablet) 50 mg PO BEDTIME [facility] Last Admin: 07/24/23 21:00 Dose: 50 mg Sodium Chloride (0.9 % Sodium Chloride Flush 3 Ml Syringe) 3 ml IVFLUSH QSHIFT [facility] Last Admin: 07/25/23 15:14 Dose: 3 ml Tramadol HCl (Tramadol Hcl 50 Mg Tablet) 50 mg PO Q4H PRN PRN Reason: Pain, Moderate(Pain Scale 4-6) Last Admin: 07/25/23 14:30 Dose: 50 mg Trazodone HCl (Trazodone Hcl 100 Mg Tablet) 100 mg PO BEDTIME [facility] Last Admin: 07/24/23 21:00 Dose: 100 mg Home Medications Medication Instructions Recorded Confirmed Last Taken Type gabapentin 400 mg capsule 400 mg PO TID 07/24/23 07/24/23 Unknown History ibuprofen 600 mg tablet 600 mg PO Q6H PRN Pain 07/24/23 07/24/23 Unknown History quetiapine 50 mg tablet 50 mg PO BEDTIME 07/24/23 07/24/23 Unknown History trazodone 100 mg tablet 100 mg PO BEDTIME PRN Insomnia 07/24/23 07/24/23 Unknown History Physical Exam Vital Signs: Vital Signs: Last Vital Signs Temp 98.9 F 07/25/23 15:15 Pulse 86 07/25/23 15:15 Resp 17 07/25/23 15:15 BP 150/81 H 07/25/23 15:15 Pulse Ox 96 07/25/23 15:15 O2 Del Method Room Air 07/25/23 15:15 BMI result Body Mass Index 26.2 Const: General: cooperative HEENT: Other: swelling right ear and pain Face and sinus: Yes normal facial exam Mouth: Normal oral and palatal mucosa present (poor dentition) Teeth and gingiva: dentition normal Eyes: General: appearance normal, both eyes and all related structures Pupils: Equal, round and reactive pupils present Resp: Effort & Inspection: normal respiratory effort Cardio: Rate: regular rate Rhythm: regular rhythm GI: Palpation (GI): Soft to palpation and nontender : General: Yes no CVA tenderness Back/Spine/Pelvis: Back: no CVA tenderness Skin: General skin exam: no rashes or lesions noted Neuro: General: moves all extremities Cranial nerves: Yes Equal, round and reactive pupils present Extrem: General: Yes normal to inspection Psych: Appearance: grossly normal Results Labs 07/25/23 05:16 07/25/23 05:16 Labs: Short CBC 07/24/23 07/25/23 Range/Units 15:09 05:16 WBC 14.2 H 11.0 H (4.8-10.8) X10*3/uL Hgb 14.3 12.9 L (14.0-18.0) g/dl Hct 41.3 L 37.9 L (42.0-52.0) % Plt Count 253 220 (160-400) X10*3/uL BMP 07/24/23 07/25/23 15:09 05:16 Sodium 138 139 Potassium 4.6 3.9 Chloride 107 112 H Carbon Dioxide 25 21 L BUN 9 11 Creatinine 0.77 0.78 Calcium 9.3 8.6 D Liver Function 07/24/23 Range/Units 15:09 Total Bilirubin 0.8 (0.0-1.0) mg/dL AST 19 (5-37) U/L ALT 27 (0-40) U/L Alkaline Phosphatase 63 (39-117) U/L Albumin 4.1 (3.5-5.0) g/dL Assessment and Plan (1) Cellulitis: Status: Acute He has possible strep or staph He has poor dentition possible cause He has possible early abscess Plan Continue current antibiotics. Surgery evaluate again but doubt drainage ability. Possible po Clindamycin as outpatient 450 tid for a week. Time Spent With Patient Time: Total time managing care of this patient today ____ minutes.
--- NOTE | 2023-07-25 16:27 | MHC.CM.PN ---
PT REPORTS HE LIVES IN A [facility] AND CAN RETURN AT [place] HE DENIES BEING CONNECTED TO ANY COMMUNITY SERVICES OR USING ANY DME PT WILL COMPLETE A HCP NAMING HIS MOTHER, GEMINI DAVEY AND STEP-FATHER, STIVEN DAVEY, HIS PRIMARY AND ALTERNATE AGENTS RESPECTIVELY PT DOES NOT CURRENTLY HAVE A PCP BUT REPORTS HE HAS A NEW PT APPT AT [facility] [place] OCT 11, 2022 DCP: RETURN TO [facility]IA PR[facility] TRANSPORT
[2023-07-25 19:13] VITALS: BP 145/92; PULSE 99; RESP 18; TEMP 36.4; O2SAT 97
[2023-07-25] MEDS: QUEtiapine Fumarate 50 MG TABLET PO (19:31)
[2023-07-26] MEDS: Morphine Sulfate 2 MG/ML CARTRIDGE IVPUSH ×2 (02:41→10:14)
--- NOTE | 2023-07-26 03:28 | PC.NURSE ---
Pt seen ambulating around room, still c/o intense pain on the right side of his face, warm compress provided, PRN meds given, with some effect as per pt. Pt c/o indegestion later of the night, Dr. Ortega was notified, when order and med is available pt was asleep.
[2023-07-26 04:00] VITALS: BP 123/79; PULSE 84; RESP 16; TEMP 36.6; O2SAT 92
[2023-07-26] MEDS: HYDROmorphone HCl 1 MG/ML SYRINGE IVPUSH ×2 (07:28→11:54)
[2023-07-26] MEDS: cefTRIAXone sodium 1 GM in 0.9 % Sodium Chloride 50 ML IV (07:28)
[2023-07-26] MEDS: 0.9 % Sodium Chloride Flush 3 ML SYRINGE IVFLUSH (07:29)
[2023-07-26 08:00] VITALS: BP 156/89; PULSE 92; RESP 16; TEMP 36.6; O2SAT 97
[2023-07-26] MEDS: metroNIDAZOLE/NS 500 MG/100 ML PIGGYBACK 100 MG IV (08:26)
[2023-07-26 09:35] LABS: Hematocrit 40.3 % (42.0-52.0); Hemoglobin 14.2 g/dl (14.0-18.0); Mean Corpuscular HGB Conc 35.2 g/dl (31.0-36.0); Mean Corpuscular Hemoglobin 32.9 pg (27.0-33.0); Mean Corpuscular Volume 93.3 fL (80.0-98.0); Mean Platelet Volume 8.6 fL (9.4-12.4); Platelet Count 253 X10*3/uL (160-400); Red Blood Count 4.32 X10*6/uL (4.60-5.80); Red Cell Distribution Width 12.8 % (11.0-16.0)
[2023-07-26 09:47] LABS: Vancomycin Trough 6.6 mcg/mL (10.0-20.0)
[2023-07-26 09:49] LABS: Anion Gap 13 (12-20); Blood Urea Nitrogen 12 mg/dL (9-16); Calcium 9.6 mg/dL (8.4-10.2); Carbon Dioxide 23 mmol/L (22-29); Chloride 108 mmol/L (96-108); Creatinine Clr Calc Pharmacy 161.9; Estimated Glomerular Filt Rate > 60; Glucose Fasting 100 mg/dL (60-99); Potassium 4.1 mmol/L (3.3-5.1); Sodium 140 mmol/L (135-145)
--- NOTE | 2023-07-26 09:54 | HE.PHANOTE ---
RE: vanco Trough on 07/26 came back at 6.6mg/L, increased dose to 1250mg Q8H with predicted AUC of 501mg/L, trough of 13.8mg/L. Next level to be drawn 07/27 at 0800
[2023-07-26] MEDS: Gabapentin 400 MG CAPSULE PO (10:14)
[2023-07-26] MEDS: vancomycin HCL 1,250 MG in 0.9 % Sodium Chloride 250 ML 166.67 MG IV (10:14)
[2023-07-26 10:17] LABS: HBS Num1 93.92 mIU/mL (0-7.99); HIV AB/AG Nonreactive (Nonreactive); HIV Num 1 0.07 S/CO (0.00-0.99); Hepatitis B Core Antibody Nonreactive (Nonreactive); Hepatitis B Surface Antigen Negative (Negative); ~HepC Num1 0.18 S/CO (0.00-0.79); ~Hepatitis B Surface Antibody REACTIVE (Nonreactive); ~Hepatitis C Antibody Nonreactive (Nonreactive)
--- NOTE | 2023-07-26 10:21 | HO.PM.IMPN ---
Subjective Subjective Date of Service: 07/26/23 Interval History: purelent discharge, improved swelling Physical Exam Vital Signs: Vital Signs: Last Vital Signs Temp 97.8 F 07/26/23 08:00 Pulse 92 07/26/23 08:00 Resp 16 07/26/23 08:00 BP 156/89 H 07/26/23 08:00 Pulse Ox 97 07/26/23 08:00 O2 Del Method Room Air 07/26/23 08:00 BMI result Body Mass Index 26.2 less swollen, more fluctuance Objective Data Active Medications Acetaminophen (Acetaminophen 325 Mg Tablet) 650 mg PO Q6H PRN PRN Reason: Pain, Mild (Pain Scale 1-3) Calcium Carbonate (Calcium Carbonate 750 Mg Tab.Chew) 750 mg PO Q6H PRN PRN Reason: Indigestion Enoxaparin Sodium (Enoxaparin Sodium 40 Mg/0.4 Ml Syringe) 40 mg SUBCUT Q24H [facility] Last Admin: 07/25/23 19:30 Dose: Not Given Documented By: AUBREY Non-Admin Reason: Patient Refused Gabapentin (Gabapentin 400 Mg Capsule) 400 mg PO TID [facility] Last Admin: 07/26/23 10:14 Dose: 400 mg Documented By: YONATAN Hydromorphone HCl (Hydromorphone Hcl 1 Mg/Ml Syringe) 1 mg IVPUSH Q4H PRN; Protocol PRN Reason: severe pain Last Admin: 07/26/23 07:28 Dose: 1 mg Documented By: YONATAN Ceftriaxone Sodium 1 gm/ (Sodium Chloride) 50 mls @ 100 mls/hr IV Q24H [facility] Last Infusion: 07/26/23 08:14 Dose: Infused Documented By: YONATAN Metronidazole (Flagyl) 500 mg in 100 mls @ 100 mls/hr IV Q12H [facility] Last Infusion: 07/26/23 09:31 Dose: Infused Documented By: YONATAN Vancomycin HCl 1,250 mg/ (Sodium Chloride) 250 mls @ 166.667 mls/hr IV Q8H [facility] Last Admin: 07/26/23 10:14 Dose: 166.67 mls/hr Documented By: YONATAN Ketorolac Tromethamine (Ketorolac Tromethamine 30 Mg/Ml Vial) 30 mg IVPUSH Q6H PRN PRN Reason: Pain, Moderate(Pain Scale 4-6) Last Admin: 07/25/23 19:59 Dose: 30 mg Documented By: AUBREY Melatonin (Melatonin 3 Mg Tablet) 6 mg PO BEDTIME PRN PRN Reason: Insomnia Morphine Sulfate (Morphine Sulfate 2 Mg/Ml Cartridge) 2 mg IVPUSH Q4H PRN; Protocol PRN Reason: moderate pain Last Admin: 07/26/23 10:14 Dose: 2 mg Documented By: YONATAN Ondansetron HCl (Ondansetron Hcl 4 Mg/2 Ml Vial) 4 mg IVPUSH Q8H PRN PRN Reason: Nausea and Vomiting Pharmacy Consult (Consult Rx Vancomycin Dosing) 1 each MISCELLANE DAILY PRN PRN Reason: Consult order Quetiapine Fumarate (Quetiapine Fumarate 50 Mg Tablet) 50 mg PO BEDTIME [facility] Last Admin: 07/25/23 19:31 Dose: 50 mg Documented By: UABREY Sodium Chloride (0.9 % Sodium Chloride Flush 3 Ml [facility]) [facility] Last Admin: 07/26/23 07:29 Dose: 3 ml Documented By: YONATAN Tramadol HCl (Tramadol Hcl 50 Mg Tablet) 50 mg PO Q4H PRN PRN Reason: Pain, Moderate(Pain Scale 4-6) Last Admin: 07/25/23 14:30 Dose: 50 mg Documented By: JAYDEN Trazodone HCl (Trazodone Hcl 100 Mg Tablet) 100 mg PO BEDTIME [facility] Last Admin: 07/25/23 19:31 Dose: Not Given Documented By: AUBREY Non-Admin Reason: Patient Refused Labs 07/26/23 09:14 07/26/23 09:14 Labs: Laboratory Results - last 24 hr 07/26/23 09:14 MCV 93.3 MCH 32.9 MCHC 35.2 RDW 12.8 Plt Count 253 MPV 8.6 L Absolute Nucleated RBC 0.000 Nucleated RBC % (auto) 0.0 Anion Gap 13 Estim Creat Clear Calc 161.9 Estimated GFR > 60 Fasting Glucose 100 H Calcium 9.6 D Vancomycin Trough 6.6 L Microbiology Microbiology Results: Microbiology 07/24/23 21:14 Blood Culture - Preliminary Blood - Venous No growth after 24 hours. 07/24/23 21:14 Blood Culture - Preliminary Blood - Venous No growth after 24 hours. Assessment and Plan (1) Skin infection: Status: Acute Plan 32M pmh mood disorder, presented with swelling and erythema on right side of face acute right face cellulitis and abscess benjamin wallace flagyl id appreciated - clinda on dc, gen surg eval pain control mood disorder seroquel dvt prophylaxis - lovenox full code reason for continued hospitalization:? need for drainage Time Spent With Patient Time: Total time managing care of this patient today ____ minutes. Quality Stroke Does the patient have a stroke diagnosis?: No VTE Prior VTE?: No VTE Risk Level:: Medical - moderate - high VTE Device Contraindication: Treatment Not Indicated VTE Drug Contraindication: N/A - Med Ordered
[2023-07-26] MEDS: Ketorolac Tromethamine 30 MG/ML VIAL IVPUSH (11:18)
[2023-07-26] MEDS: LORazepam 2 MG/ML VIAL IVPUSH (11:19)
--- NOTE | 2023-07-26 12:10 | PM.CNGS ---
History of Present Illness Consult details Consult date: 07/26/23 Narrative: The patient is a 33-year-old gentleman who denies significant history who is a smoker and was admitted to the hospital hospitalist service on 07/24/23 of his right face in the preauricular location with a diagnosis of cellulitis and possible parotiditis. 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 He states there was purulence drainage yesterday. I was asked to evaluate the patient since ENT services are unavailable. The patient notes prior similar infections involving his hands but again notes that he has never had an infection in this location and does not recall the diagnosis of parotiditis previous. Review of Systems Review of Systems: Yes all other systems are reviewed and are negative Constitutional: Constitutional: Reports as per [facility] Past Medical History Medical History Skin infection Family History Family history: reviewed and not pertinent Social History Social History Household Members: Other Household Members Other:: [facility] Housing: House Do you presently have visiting nurse or other home services: No Alcohol intake: former Patient Tobacco Use Status: Current everyday Tobacco user Tobacco use type: Cigarette Cigarettes Per Day: 10 Second Hand Smoke Exposure: No service: No Meds Allergies Allergy/AdvReac Type Severity Reaction Status Date / Time coconut Allergy Severe ANAPHYLAXIS Verified 07/24/23 14:23 Penicillins [PENICILLINS] Allergy Unknown HIVES/DIFFICULTY Verified 07/24/23 14:23 BREATHING Active Medications: Current Medications Acetaminophen (Acetaminophen 325 Mg Tablet) 650 mg PO Q6H PRN PRN Reason: Pain, Mild (Pain Scale 1-3) Calcium Carbonate (Calcium Carbonate 750 Mg Tab.Chew) 750 mg PO Q6H PRN PRN Reason: Indigestion Enoxaparin Sodium (Enoxaparin Sodium 40 Mg/0.4 Ml Syringe) 40 mg SUBCUT Q24H [facility] Last Admin: 07/25/23 19:30 Dose: Not Given Gabapentin (Gabapentin 400 Mg Capsule) 400 mg PO TID [facility] Last Admin: 07/26/23 10:14 Dose: 400 mg Hydromorphone HCl (Hydromorphone Hcl 1 Mg/Ml Syringe) 1 mg IVPUSH Q4H PRN; Protocol PRN Reason: severe pain Last Admin: 07/26/23 11:54 Dose: 1 mg Ceftriaxone Sodium 1 gm/ (Sodium Chloride) 50 mls @ 100 mls/hr IV Q24H [facility] Last Infusion: 07/26/23 08:14 Dose: Infused Metronidazole (Flagyl) 500 mg in 100 mls @ 100 mls/hr IV Q12H [facility] Last Infusion: 07/26/23 09:31 Dose: Infused Vancomycin HCl 1,250 mg/ (Sodium Chloride) 250 mls @ 166.667 mls/hr IV Q8H [facility] Last Infusion: 07/26/23 11:52 Dose: Infused Ketorolac Tromethamine (Ketorolac Tromethamine 30 Mg/Ml Vial) 30 mg IVPUSH Q6H PRN PRN Reason: Pain, Moderate(Pain Scale 4-6) Last Admin: 07/26/23 11:18 Dose: 30 mg Melatonin (Melatonin 3 Mg Tablet) 6 mg PO BEDTIME PRN PRN Reason: Insomnia Morphine Sulfate (Morphine Sulfate 2 Mg/Ml Cartridge) 2 mg IVPUSH Q4H PRN; Protocol PRN Reason: moderate pain Last Admin: 07/26/23 10:14 Dose: 2 mg Ondansetron HCl (Ondansetron Hcl 4 Mg/2 Ml Vial) 4 mg IVPUSH Q8H PRN PRN Reason: Nausea and Vomiting Pharmacy Consult (Consult Rx Vancomycin Dosing) 1 each MISCELLANE DAILY PRN PRN Reason: Consult order Quetiapine Fumarate (Quetiapine Fumarate 50 Mg Tablet) 50 mg PO BEDTIME [facility] Last Admin: 07/25/23 19:31 Dose: 50 mg Sodium Chloride (0.9 % Sodium Chloride Flush 3 Ml Syringe) 3 ml IVFLUSH QSHIFT [facility] Last Admin: 07/26/23 07:29 Dose: 3 ml Tramadol HCl (Tramadol Hcl 50 Mg Tablet) 50 mg PO Q4H PRN PRN Reason: Pain, Moderate(Pain Scale 4-6) Last Admin: 07/25/23 14:30 Dose: 50 mg Trazodone HCl (Trazodone Hcl 100 Mg Tablet) 100 mg PO BEDTIME [facility] Last Admin: 07/25/23 19:31 Dose: Not Given Home Medications Medication Instructions Recorded Confirmed Last Taken Type gabapentin 400 mg capsule 400 mg PO TID 07/24/23 07/24/23 Unknown History ibuprofen 600 mg tablet 600 mg PO Q6H PRN Pain 07/24/23 07/24/23 Unknown History quetiapine 50 mg tablet 50 mg PO BEDTIME 07/24/23 07/24/23 Unknown History trazodone 100 mg tablet 100 mg PO BEDTIME PRN Insomnia 07/24/23 07/24/23 Unknown History Physical Exam Vital Signs: Vital Signs: Last Vital Signs Temp 97.8 F 07/26/23 08:00 Pulse 92 07/26/23 08:00 Resp 16 07/26/23 08:00 BP 156/89 H 07/26/23 08:00 Pulse Ox 97 07/26/23 08:00 O2 Del Method Room Air 07/26/23 08:00 BMI result Body Mass Index 26.2 On exam, the patient is nontoxic Mouth demonstrates poor dentition but no obvious gingival inflammation Under loupe magnification, there is no evidence of a preauricular sinus. To palpation, the patient reports tenderness and there is overt erythema, there is a diffuse superficial erosion that may have been oozing but I am unable to palpate a discrete abscess. No pathologic cervical adenopathy is noted, no supraclavicular or infraclavicular adenopathy is palpable Results Labs 07/26/23 09:14 07/26/23 09:14 Labs: Abnormal lab results 07/26/23 Range/Units 09:14 WBC 18.0 H (4.8-10.8) X10*3/uL RBC 4.32 L (4.60-5.80) X10*6/uL Hct 40.3 L (42.0-52.0) % MPV 8.6 L (9.4-12.4) fL Fasting Glucose 100 H (60-99) mg/dL Vancomycin Trough 6.6 L (10.0-20.0) mcg/mL Short CBC 07/26/23 Range/Units 09:14 WBC 18.0 H (4.8-10.8) X10*3/uL Hgb 14.2 (14.0-18.0) g/dl Hct 40.3 L (42.0-52.0) % Plt Count 253 (160-400) X10*3/uL BMP 10/27/23 09:14 Sodium 140 Potassium 4.1 Chloride 108 Carbon Dioxide 23 BUN 12 Creatinine 0.74 Calcium 9.6 D All other labs normal. Imaging Additional studies: I reviewed the CT of the patient's head/neck. There is diffuse edema in the right parotid area, however there is no discrete abscess visualized. Assessment and Plan (1) Skin infection: Status: Acute (2) Cellulitis: Status: Acute Plan Explained to the patient that the current diagnosis of cellulitis and possible parotiditis may not require operative intervention. Explained that I do not appreciate an abscess on CT and input from ENT may be required. Options at this point include continued antibiotic treatment verses a fine needle aspiration. The inherent risks of pain, negative aspiration, conversion to bedside incision and drainage of gross purulence is encountered and/or need to see ENT were discussed with the patient. He seemed understand his options and requested that I proceed. See orders, I have ordered lidocaine with epinephrine for patient comfort and will return to perform an FNA later today. ADDENDUM 07/26/23 8036 Following the discussion and options with the patient again before the procedure, he signed informed consent to proceed with an FNA, possible I&D. After prepping with Betadine and draping the area, 0.2 cc of lidocaine with epi was infiltrated over the fluid/tender area of the patient's right parotid in the preauricular space. After confirming good analgesia, 21 gauge needle and 10 cc syringe was used to aspirate 4.0 cc of serosanguineous material. No gross purulence was appreciated. Pressure was used for hemostasis at the needle site. Check stat Gram stain; if organisms are seen, will perform bedside I and D. if amylase is elevated and consistent with a parotid injury and fluid collection, FNA may be adequate and concern for parotid gland cutaneous fistula may need input from ENT. Tolerated well. Will reassess patient tomorrow. Time Spent With Patient Time: Total time managing care of this patient today ____ minutes. Procedures Date of Service Date of Service: 07/26/23 Abscess I/D Consent for Procedure: Elective - informed consent obtained Site: face Side (if applicable): right Anesthetic used: with epi Technique: needle aspiration Amount of fluid (mL): 4.0 Irrigation: No Packing used?: none Additional comments: serosanguinous fluid sent for Gram stain/culture & amylase given the non-purulent nature & proximity to parotid gland
--- NOTE | 2023-07-26 13:27 | HO.WOUND ---
Wound Consult: Initial 33yr old male admitted to [facility] on?07/24/23 20:02 - See progress notes and H&P for detailed history. Arrival to bedside pt was agreeable to my assessment - upon learning I would not be the provider to perform an I&D he became increasingly agitated and upset. At this time there was no observed drainage with palpation - the scabs in place are stable. The are has significant swelling and redness - pt awaiting surgery consultation. I attempted discuss covering the area incase the scab opens and to contain drainage. He refused. He requested I leave his room - pt was not agreeable to continuing my assessment, discussing topical recommendations. TT to provider and direct care nurse. Please feel free to reconsult if topical recommendations are needed.
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
[2023-07-26] MEDS: OLANZapine 10 MG VIAL IM (14:50)
--- NOTE | 2023-07-26 15:27 | MHC.CM.PN ---
PT NOT YET MEDICALLY CLEARED TO DC DCP REMAINS RETURN TO THE [facility] VIA PRIVATE TRANSPORT
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
--- NOTE | 2023-07-26 16:18 | P.PNID_ITS ---
Subjective Subjective Date of Service: 07/26/23 Critical Care Time (minutes): 15 Comment: complains area face still reddened and wants drainage Objective Data Labs 07/26/23 09:14 07/26/23 09:14 Labs: Laboratory Results - last 24 hr 07/26/23 09:14 WBC 18.0 H RBC 4.32 L Hgb 14.2 Hct 40.3 L MCV 93.3 MCH 32.9 MCHC 35.2 RDW 12.8 Plt Count 253 MPV 8.6 L Absolute Nucleated RBC 0.000 Nucleated RBC % (auto) 0.0 Sodium 140 Potassium 4.1 Chloride 108 Carbon Dioxide 23 Anion Gap 13 BUN 12 Creatinine 0.74 Estim Creat Clear Calc 161.9 Estimated GFR > 60 Fasting Glucose 100 H Calcium 9.6 D Vancomycin Trough 6.6 L Hep Bs Antigen Negative Hep Bs Antibody REACTIVE Hep B Core Total Ab Nonreactive Hepatitis C Ab (EIA) Nonreactive HIV 1&2 Ab/P24 Ag 4thGn Nonreactive Microbiology Microbiology Results: Microbiology 07/24/23 21:14 Blood - Venous Blood Culture - Preliminary No growth after 24 hours. 07/24/23 21:14 Blood - Venous Blood Culture - Preliminary No growth after 24 hours. Physical Exam 2 Vital Signs: Vital Signs: Last Vital Signs Temp 97.8 F 07/26/23 08:00 Pulse 92 07/26/23 08:00 Resp 16 07/26/23 08:00 BP 156/89 H 07/26/23 08:00 Pulse Ox 97 07/26/23 08:00 O2 Del Method Room Air 07/26/23 08:00 BMI result Body Mass Index 26.2 Const: General: cooperative HEENT: Other: right face area some swelling eyes open Throat: Yes posterior oropharynx normal Resp: Effort & Inspection: normal respiratory effort Cardio: Rate: regular rate Rhythm: regular rhythm GI: Inspection: Yes normal to inspection Assessment and Plan Assessment and plan (1) Skin infection: Problem details: He still has some swelling and may need drainage if pocket available. Gram negative and gram positive possible also possible anerobic but difficult to treat with reported severe PCN allergy Status: Acute Assessment and Plan: Switch to Levaquin,linezolid and flagyl more side effects than PCN but cant use and cephalosporin risky Surgery again to see if needs drainage and culture. (2) Cellulitis: Status: Acute Time Spent With Patient Time: Total time managing care of this patient today ____ minutes.
[2023-07-26 19:42] LABS: Amylase Pleural Fluid 38 U/L
--- NOTE | 2023-07-26 20:49 | PC.NURSE ---
pt has no IV access, asked for new IV insertion for the antibiotic. educated to patient of importance of antibiotic to consistently to take it. pt refused to put new iv line at this time, refused all night meds. dr. Ortega notified it. will CONT to monitor s/s or any changes.
[2023-07-27] MEDS: HYDROmorphone HCl 1 MG/ML SYRINGE IVPUSH ×6 (05:55→22:16)
[2023-07-27] MEDS: Linezolid/D5W 600 MG/300 ML PIGGYBACK 300 MG IV ×2 (05:58→15:30)
[2023-07-27] MEDS: LORazepam 2 MG/ML VIAL 1 MG IVPUSH (06:19)
[2023-07-27 06:34] LABS: Hematocrit 38.4 % (42.0-52.0); Hemoglobin 13.1 g/dl (14.0-18.0); Mean Corpuscular HGB Conc 34.1 g/dl (31.0-36.0); Mean Corpuscular Hemoglobin 32.9 pg (27.0-33.0); Mean Corpuscular Volume 96.5 fL (80.0-98.0); Mean Platelet Volume 8.8 fL (9.4-12.4); Platelet Count 245 X10*3/uL (160-400); Red Blood Count 3.98 X10*6/uL (4.60-5.80); Red Cell Distribution Width 13.2 % (11.0-16.0)
[2023-07-27 06:47] VITALS: BP 130/71; PULSE 88; RESP 16; TEMP 36.9; O2SAT 94
[2023-07-27 06:49] LABS: Anion Gap 14 (12-20); Blood Urea Nitrogen 12 mg/dL (9-16); Carbon Dioxide 23 mmol/L (22-29); Chloride 110 mmol/L (96-108); Creatinine Clr Calc Pharmacy 166.4; Estimated Glomerular Filt Rate > 60; Glucose Fasting 109 mg/dL (60-99); Potassium 3.7 mmol/L (3.3-5.1); Sodium 143 mmol/L (135-145)
[2023-07-27] MEDS: Ketorolac Tromethamine 30 MG/ML VIAL IVPUSH (06:52)
[2023-07-27] MEDS: Morphine Sulfate 2 MG/ML CARTRIDGE IVPUSH ×3 (06:52→19:15)
[2023-07-27 08:00] VITALS: BP 142/94; PULSE 94; RESP 16; TEMP 36.8; O2SAT 95
--- NOTE | 2023-07-27 08:11 | PM.PNGS ---
Subjective Subjective Date of Service: 07/27/23 Patient reports: still having pain Interval history: The patient is seen in follow-up of the right preauricular facial swelling/cellulitis. He reports that he has ongoing pain and swelling. We discussed the aspiration from yesterday and the fact that there was no evidence of ongoing parotid gland leak and that this may represent a skin abscess. Patient continues to endorse brown/green malodorous drainage being expressed at his initial admission, but there was no CT evidence of abscess, and under loupe magnification, I do not appreciate a preauricular cyst/sinus, or other discrete punctum draining any purulence fluid. There was a diffuse, almost razor burn-like skin sloughing over the swelling, but no discrete area to suggest an abscess had drained. Patient continues to deny interval improvement. We discussed options including an opinion from ENT. The patient also discussed signing out against medical advice but was in agreement to stay until tomorrow. We discussed the option of and I and D to see whether not this would improve the patient's symptoms and I reviewed the inherent risks of bleeding, infection, injury to the parotid gland and or need for ENT opinion/input. The patient seemed understand and asked me to proceed. Physical Exam Vital Signs: Vital Signs: Last Vital Signs Temp 98.4 F 07/27/23 06:47 Pulse 88 07/27/23 06:47 Resp 16 07/27/23 06:47 BP 130/71 07/27/23 06:47 Pulse Ox 94 07/27/23 06:47 O2 Del Method Room Air 07/27/23 06:47 BMI result Body Mass Index 26.2 On exam, the patient is cooperative and nontoxic He is in no acute respiratory distress The right preauricular facial swelling is about the same as yesterday with the same cellulitis and tenderness. Again, no central punctum or discrete abscess drainage site is appreciated on today's exam. Objective Data Active Medications Acetaminophen (Acetaminophen 325 Mg Tablet) 650 mg PO Q6H PRN PRN Reason: Pain, Mild (Pain Scale 1-3) Calcium Carbonate (Calcium Carbonate 750 Mg Tab.Chew) 750 mg PO Q6H PRN PRN Reason: Indigestion Enoxaparin Sodium (Enoxaparin Sodium 40 Mg/0.4 Ml Syringe) 40 mg SUBCUT Q24H [facility] Last Admin: 07/26/23 20:49 Dose: Not Given Documented By: GEORGE Non-Admin Reason: Patient Refused Gabapentin (Gabapentin 400 Mg Capsule) 400 mg PO TID [facility] Last Admin: 07/26/23 20:49 Dose: Not Given Documented By: GEORGE Non-Admin Reason: Patient Refused Hydromorphone HCl (Hydromorphone Hcl 1 Mg/Ml Syringe) 1 mg IVPUSH Q2H PRN; Protocol PRN Reason: severe pain Metronidazole (Flagyl) 500 mg in 100 mls @ 100 mls/hr IV Q12H [facility] Last Admin: 07/26/23 20:48 Dose: Not Given Documented By: GEORGE Non-Admin Reason: Patient Refused Levofloxacin (Levaquin) 500 mg in 100 mls @ 100 mls/hr IV Q24H [facility] Last Admin: 07/26/23 15:47 Dose: Not Given Documented By: YONATAN Non-Admin Reason: Patient Refused Linezolid (Zyvox/D5w) 600 mg in 300 mls @ 300 mls/hr IV Q12H [facility] Last Admin: 07/27/23 05:58 Dose: 300 mls/hr Documented By: GEORGE Ketorolac Tromethamine (Ketorolac Tromethamine 30 Mg/Ml Vial) 30 mg IVPUSH Q6H PRN PRN Reason: Pain, Moderate(Pain Scale 4-6) Last Admin: 07/27/23 06:52 Dose: 30 mg Documented By: GEORGE Melatonin (Melatonin 3 Mg Tablet) 6 mg PO BEDTIME PRN PRN Reason: Insomnia Morphine Sulfate (Morphine Sulfate 2 Mg/Ml Cartridge) 2 mg IVPUSH Q4H PRN; Protocol PRN Reason: moderate pain Last Admin: 07/27/23 06:52 Dose: 2 mg Documented By: GEORGE Olanzapine (Olanzapine 5 Mg Tablet) 5 mg PO Q4H PRN PRN Reason: agitation Ondansetron HCl (Ondansetron Hcl 4 Mg/2 Ml Vial) 4 mg IVPUSH Q8H PRN PRN Reason: Nausea and Vomiting Quetiapine Fumarate (Quetiapine Fumarate 50 Mg Tablet) 50 mg PO BEDTIME [facility] Last Admin: 07/26/23 20:49 Dose: Not Given Documented By: GEORGE Non-Admin Reason: Patient Refused Sodium Chloride (0.9 % Sodium Chloride Flush 3 Ml Syringe) 3 ml IVFLUSH QSHIFT [facility] Last Admin: 07/26/23 22:56 Dose: Not Given Documented By: GEORGE Non-Admin Reason: No Access Tramadol HCl (Tramadol Hcl 50 Mg Tablet) 50 mg PO Q4H PRN PRN Reason: Pain, Moderate(Pain Scale 4-6) Last Admin: 07/25/23 14:30 Dose: 50 mg Documented By: JAYDEN Trazodone HCl (Trazodone Hcl 100 Mg Tablet) 100 mg PO BEDTIME [facility] Last Admin: 07/26/23 20:49 Dose: Not Given Documented By: GEORGE Non-Admin Reason: Patient Refused Labs 07/27/23 06:05 07/27/23 06:05 Labs: Laboratory Results - last 24 hr 07/26/23 07/26/23 07/27/23 09:14 16:15 06:05 MCV 93.3 96.5 MCH 32.9 32.9 MCHC 35.2 34.1 RDW 12.8 13.2 Plt Count 253 245 MPV 8.6 L 8.8 L Absolute Nucleated RBC 0.000 0.000 Nucleated RBC % (auto) 0.0 0.0 Anion Gap 13 14 Estim Creat Clear Calc 161.9 166.4 Estimated GFR > 60 > 60 Fasting Glucose 100 H 109 H Calcium 9.6 D 9.0 D Pleural Amylase 38 Vancomycin Trough 6.6 L Hep Bs Antigen Negative Hep Bs Antibody REACTIVE Hep B Core Total Ab Nonreactive Hepatitis C Ab (EIA) Nonreactive HIV 1&2 Ab/P24 Ag 4thGn Nonreactive Microbiology Microbiology Results: Microbiology 07/26/23 16:15 Gram Stain - Final Abscess Facial Routine Culture - Preliminary Staphylococcus aureus 07/24/23 21:14 Blood Culture - Preliminary Blood - Venous No growth after 48 hours. 07/24/23 21:14 Blood Culture - Preliminary Blood - Venous No growth after 48 hours. Procedures Date of Service Date of Service: 07/27/23 Abscess I/D Consent for Procedure: Elective - informed consent obtained Site: face Side (if applicable): right Anesthetic used: with epi Technique: incised with #11 blade Amount of fluid (mL): 5 Irrigation: Yes Packing used?: plain Additional comments: Tolerated well. Pocket tracking subcutaneously for approximately 2 cm circumferentially and deep into the subcu tissues was noted but no gross purulence was expressed. Serosanguineous material, approximately 5 cc was expressed. Plain wick placed. Progress Note: A&P Assessment and plan (1) Skin infection: Status: Acute (2) Cellulitis: Status: Acute (3) Facial abscess: Status: Acute Plan Risks, benefits and options were discussed with the patient and apparently understood. See procedure note for bedside I and D. the same serosanguineous material that was aspirated was demonstrated at I and D into the subcu. Check Gram stain and cultures. Packing placed, call with questions. I plan to reassess the patient to remove packing tomorrow Time Spent With Patient Time: Total time managing care of this patient today ____ minutes. Quality Stroke Does the patient have a stroke diagnosis?: No VTE Prior VTE?: No VTE Risk Level:: Medical - moderate - high VTE Device Contraindication: Treatment Not Indicated VTE Drug Contraindication: N/A - Med Ordered
[2023-07-27] MEDS: metroNIDAZOLE/NS 500 MG/100 ML PIGGYBACK 100 MG IV ×2 (09:09→19:17)
[2023-07-27] MEDS: 0.9 % Sodium Chloride Flush 3 ML SYRINGE IVFLUSH ×3 (09:10→19:15)
[2023-07-27] MEDS: Gabapentin 400 MG CAPSULE PO ×3 (09:15→19:23)
--- NOTE | 2023-07-27 10:11 | HO.PM.IMPN ---
Subjective Subjective Date of Service: 07/27/23 Interval History: unchanged Physical Exam Vital Signs: Vital Signs: Last Vital Signs Temp 98.2 F 07/27/23 08:00 Pulse 94 07/27/23 08:00 Resp 16 07/27/23 08:00 BP 142/94 H 07/27/23 08:00 Pulse Ox 95 07/27/23 08:00 O2 Del Method Room Air 07/27/23 08:00 BMI result Body Mass Index 26.2 On exam, the patient is cooperative and nontoxic He is in no acute respiratory distress The right preauricular facial swelling is about the same as yesterday with the same cellulitis and tenderness. Again, no central punctum or discrete abscess drainage site is appreciated on today's exam. Objective Data Active Medications Acetaminophen (Acetaminophen 325 Mg Tablet) 650 mg PO Q6H PRN PRN Reason: Pain, Mild (Pain Scale 1-3) Calcium Carbonate (Calcium Carbonate 750 Mg Tab.Chew) 750 mg PO Q6H PRN PRN Reason: Indigestion Enoxaparin Sodium (Enoxaparin Sodium 40 Mg/0.4 Ml Syringe) 40 mg SUBCUT Q24H [facility] Last Admin: 07/26/23 20:49 Dose: Not Given Documented By: GEORGE Non-Admin Reason: Patient Refused Gabapentin (Gabapentin 400 Mg Capsule) 400 mg PO TID [facility] Last Admin: 07/27/23 09:15 Dose: 400 mg Documented By: TATIANA Hydromorphone HCl (Hydromorphone Hcl 1 Mg/Ml Syringe) 1 mg IVPUSH Q2H PRN; Protocol PRN Reason: severe pain Last Admin: 07/27/23 08:45 Dose: 1 mg Documented By: TATIANA Metronidazole (Flagyl) 500 mg in 100 mls @ 100 mls/hr IV Q12H [facility] Last Infusion: 07/27/23 09:33 Dose: 0 mls/hr Documented By: TATIANA Levofloxacin (Levaquin) 500 mg in 100 mls @ 100 mls/hr IV Q24H [facility] Last Admin: 07/26/23 15:47 Dose: Not Given Documented By: YONATAN Non-Admin Reason: Patient Refused Linezolid (Zyvox/D5w) 600 mg in 300 mls @ 300 mls/hr IV Q12H [facility] Last Infusion: 10/28/23 09:14 Dose: Infused Documented By: TATIANA Ketorolac Tromethamine (Ketorolac Tromethamine 30 Mg/Ml Vial) 30 mg IVPUSH Q6H PRN PRN Reason: Pain, Moderate(Pain Scale 4-6) Last Admin: 07/27/23 06:52 Dose: 30 mg Documented By: GEORGE Melatonin (Melatonin 3 Mg Tablet) 6 mg PO BEDTIME PRN PRN Reason: Insomnia Morphine Sulfate (Morphine Sulfate 2 Mg/Ml Cartridge) 2 mg IVPUSH Q4H PRN; Protocol PRN Reason: moderate pain Last Admin: 07/27/23 06:52 Dose: 2 mg Documented By: GEORGE Olanzapine (Olanzapine 5 Mg Tablet) 5 mg PO Q4H PRN PRN Reason: agitation Ondansetron HCl (Ondansetron Hcl 4 Mg/2 Ml Vial) 4 mg IVPUSH Q8H PRN PRN Reason: Nausea and Vomiting Quetiapine Fumarate (Quetiapine Fumarate 50 Mg Tablet) 50 mg PO BEDTIME [facility] Last Admin: 07/26/23 20:49 Dose: Not Given Documented By: GEORGE Non-Admin Reason: Patient Refused Sodium Chloride (0.9 % Sodium Chloride Flush 3 Ml Syringe) 3 ml IVFLUSH [facility] Last Admin: 07/27/23 09:10 Dose: 3 ml Documented By: TATIANA Tramadol HCl (Tramadol Hcl 50 Mg Tablet) 50 mg PO Q4H PRN PRN Reason: Pain, Moderate(Pain Scale 4-6) Last Admin: 07/25/23 14:30 Dose: 50 mg Documented By: JAYDEN Trazodone HCl (Trazodone Hcl 100 Mg Tablet) 100 mg PO BEDTIME [facility] Last Admin: 07/26/23 20:49 Dose: Not Given Documented By: GEORGE Non-Admin Reason: Patient Refused Labs 07/27/23 06:05 07/27/23 06:05 Labs: Laboratory Results - last 24 hr 07/26/23 07/26/23 07/27/23 09:14 16:15 06:05 MCV 96.5 MCH 32.9 MCHC 34.1 RDW 13.2 Plt Count 245 MPV 8.8 L Absolute Nucleated RBC 0.000 Nucleated RBC % (auto) 0.0 Anion Gap 14 Estim Creat Clear Calc 166.4 Estimated GFR > 60 Fasting Glucose 109 H Calcium 9.0 D Pleural Amylase 38 Hep Bs Antigen Negative Hep Bs Antibody REACTIVE Hep B Core Total Ab Nonreactive Hepatitis C Ab (EIA) Nonreactive HIV 1&2 Ab/P24 Ag 4thGn Nonreactive Microbiology Microbiology Results: Microbiology 07/26/23 16:15 Gram Stain - Final Abscess Facial Routine Culture - Preliminary Staphylococcus aureus 07/24/23 21:14 Blood Culture - Preliminary Blood - Venous No growth after 48 hours. 07/24/23 21:14 Blood Culture - Preliminary Blood - Venous No growth after 48 hours. Assessment and Plan (1) Skin infection: Status: Acute Plan 32M pmh mood disorder, presented with swelling and erythema on right side of face acute right face cellulitis and abscess zyvox, levaquin, flagyl surgery appreciated, i and d performed pain control mood disorder seroquel dvt prophylaxis - lovenox full code reason for continued hospitalization:iv abx, close monitoring Time Spent With Patient Time: Total time managing care of this patient today ____ minutes. Quality Stroke Does the patient have a stroke diagnosis?: No VTE Prior VTE?: No VTE Risk Level:: Medical - moderate - high VTE Device Contraindication: Treatment Not Indicated VTE Drug Contraindication: N/A - Med Ordered
[2023-07-27] MEDS: levoFLOXacin/D5W 500 MG/100 ML PIGGYBACK 100 MG IV (13:42)
[2023-07-27 15:37] VITALS: BP 127/58; PULSE 80; RESP 18; TEMP 36.4; O2SAT 100
--- NOTE | 2023-07-27 18:28 | PC.NURSE ---
Patient refuses care, constantly asking to leave. He needs education on importance of taking antibiotics, wound management, and administration of pain medications.
[2023-07-27] MEDS: traZODone HCL 100 MG TABLET PO (19:23)
[2023-07-27] MEDS: QUEtiapine Fumarate 50 MG TABLET PO (19:23)
[2023-07-27 20:00] VITALS: BP 164/96; PULSE 90; RESP 18; TEMP 36.3; O2SAT 98
[2023-07-27] MEDS: Bismuth Subsalicylate 262 MG TABLET PO (21:18)
[2023-07-27] MEDS: Nicotine Polacrilex Lozenge 4 MG LOZENGE BUCCAL (21:18)
[2023-07-28] MEDS: HYDROmorphone HCl 1 MG/ML SYRINGE IVPUSH ×4 (00:26→08:55)
[2023-07-28 01:11] VITALS: BP 148/96; PULSE 79; RESP 18; TEMP 36.3; O2SAT 98
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
[2023-07-28] MEDS: Morphine Sulfate 2 MG/ML CARTRIDGE IVPUSH ×2 (02:02→06:28)
[2023-07-28] MEDS: Linezolid/D5W 600 MG/300 ML PIGGYBACK 300 MG IV (02:02)
[2023-07-28 08:00] VITALS: BP 139/83; PULSE 81; RESP 18; TEMP 36.4; O2SAT 97
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
[2023-07-28] MEDS: Gabapentin 400 MG CAPSULE PO (08:55)
[2023-07-28] MEDS: 0.9 % Sodium Chloride Flush 3 ML SYRINGE IVFLUSH (08:56)
--- NOTE | 2023-07-28 08:59 | PM.PNGS ---
Subjective Subjective Date of Service: 07/28/23 Patient reports: no new complaints and feels better Interval history: The patient is up, dressed, thanked me for his I and D in states that he feels much better. He is hopeful to be discharged. Patient notes that yesterday late afternoon when his dressing was being changed, the packing fell out. He currently has a Band-Aid on. Patient had questions regarding topical ointments which we discussed. The importance of washing the area 2-3 times a day with an antibacterial soap either in the sink or the shower and avoiding any ointments/creams that can trap hair/fuzz which would prevent healing were discussed. A card with my office phone number and discharge instructions were reviewed and placed in the EMR. Physical Exam Vital Signs: Vital Signs: Last Vital Signs Temp 97.5 F 07/28/23 08:00 Pulse 81 07/28/23 08:00 Resp 18 07/28/23 08:00 BP 139/83 07/28/23 08:00 Pulse Ox 97 07/28/23 08:00 O2 Del Method Room Air 07/28/23 08:00 BMI result Body Mass Index 26.2 On exam, the patient is nontoxic Patient is walking around the room and appears to be in good spirits and stable Patient took down his Band-Aid and the abscess on his right face/right preauricular area is improved with continued drainage. The redness and tenderness is improved. The right lower eyelid bruising that was present yesterday is stable and possibly improved. Objective Data Active Medications Acetaminophen (Acetaminophen 325 Mg Tablet) 650 mg PO Q6H PRN PRN Reason: Pain, Mild (Pain Scale 1-3) Calcium Carbonate (Calcium Carbonate 750 Mg Tab.Chew) 750 mg PO Q6H PRN PRN Reason: Indigestion Enoxaparin Sodium (Enoxaparin Sodium 40 Mg/0.4 Ml Syringe) 40 mg SUBCUT Q24H [facility] Last Admin: 07/27/23 19:31 Dose: Not Given Documented By: GEORGE Non-Admin Reason: Patient Refused Gabapentin (Gabapentin 400 Mg Capsule) 400 mg PO TID [facility] Last Admin: 07/27/23 19:23 Dose: 400 mg Documented By: GEORGE Hydromorphone HCl (Hydromorphone Hcl 1 Mg/Ml Syringe) 1 mg IVPUSH Q2H PRN; Protocol PRN Reason: severe pain Last Admin: 07/28/23 04:57 Dose: 1 mg Documented By: GEORGE Metronidazole (Flagyl) 500 mg in 100 mls @ 100 mls/hr IV Q12H [facility] Last Infusion: 07/27/23 20:22 Dose: Infused Documented By: GEORGE Levofloxacin (Levaquin) 500 mg in 100 mls @ 100 mls/hr IV Q24H [facility] Last Infusion: 07/27/23 15:15 Dose: Infused Documented By: TATIANA Linezolid (Zyvox/D5w) 600 mg in 300 mls @ 300 mls/hr IV Q12H [facility] Last Infusion: 07/28/23 03:02 Dose: Infused Documented By: GEORGE Ketorolac Tromethamine (Ketorolac Tromethamine 30 Mg/Ml Vial) 30 mg IVPUSH Q6H PRN PRN Reason: Pain, Moderate(Pain Scale 4-6) Last Admin: 07/27/23 06:52 Dose: 30 mg Documented By: GEORGE Melatonin (Melatonin 3 Mg Tablet) 6 mg PO BEDTIME PRN PRN Reason: Insomnia Morphine Sulfate (Morphine Sulfate 2 Mg/Ml Cartridge) 2 mg IVPUSH Q4H PRN; Protocol PRN Reason: moderate pain Last Admin: 07/28/23 06:28 Dose: 2 mg Documented By: GEORGE Nicotine Polacrilex (Nicotine Polacrilex Lozenge 4 Mg Lozenge) 4 mg BUCCAL Q2H PRN PRN Reason: Nicotine Cravings Last Admin: 07/27/23 21:18 Dose: 4 mg Documented By: GEORGE Olanzapine (Olanzapine 5 Mg Tablet) 5 mg PO Q4H PRN PRN Reason: agitation Ondansetron HCl (Ondansetron Hcl 4 Mg/2 Ml Vial) 4 mg IVPUSH Q8H PRN PRN Reason: Nausea and Vomiting Quetiapine Fumarate (Quetiapine Fumarate 50 Mg Tablet) 50 mg PO BEDTIME [facility] Last Admin: 07/27/23 19:23 Dose: 50 mg Documented By: GEORGE Sodium Chloride (0.9 % Sodium Chloride Flush 3 Ml Syringe) [facility] Last Admin: 07/27/23 19:15 Dose: 3 ml Documented By: GEORGE Tramadol HCl (Tramadol Hcl 50 Mg Tablet) 50 mg PO Q4H PRN PRN Reason: Pain, Moderate(Pain Scale 4-6) Last Admin: 07/25/23 14:30 Dose: 50 mg Documented By: JAYDEN Trazodone HCl (Trazodone Hcl 100 Mg Tablet) 100 mg PO BEDTIME [facility] Last Admin: 07/27/23 19:23 Dose: 100 mg Documented By: GEORGE Labs 07/27/23 06:05 07/27/23 06:05 Microbiology Microbiology Results: Microbiology 07/26/23 16:15 Gram Stain - Final Abscess Facial Routine Culture - Final Methicillin Res Staph Aureus Anaerobic Culture - Preliminary Culture in progress. 07/27/23 09:25 Gram Stain - Final Abscess Facial Procedures Date of Service Date of Service: 07/28/23 Progress Note: A&P Assessment and plan (1) Facial abscess: Status: Acute (2) Skin infection: Status: Acute (3) Cellulitis: Status: Acute Plan The patient is improved since I and D. instructions regarding wound care and avoiding topical ointments that could trap debris and prevent healing were discussed. The hospitalist will help facilitate discharge by placing the patient on oral antibiotics. Patient will follow-up with me in 1-2 weeks in the office. Time Spent With Patient Time: Total time managing care of this patient today ____ minutes. Quality Stroke Does the patient have a stroke diagnosis?: No VTE Prior VTE?: No VTE Risk Level:: Medical - moderate - high VTE Device Contraindication: Treatment Not Indicated VTE Drug Contraindication: N/A - Med Ordered
--- NOTE | 2023-07-28 09:42 | MHC.CM.PN ---
PT WILL DC TODAY BACK [facility] PT WILL ARRANGE TRANSPORT
== END 2023-07-28 10:00 | disposition home or self-care (01) | DRG 115 ==
LOC: HO.ED 20:07 → HO.EDOVER 20:13 → HO.S3 07-25 14:12
PROVIDERS: Physician Assistant; Surgery; Admitting Provider Student in an Organized Health Care Education/Training Program; Emergency Provider Internal Medicine; Visit Provider Internal Medicine
DX: K11.21 Acute sialoadenitis (principal); F17.210 Nicotine dependence, cigarettes, uncomplicated; L03.211 Cellulitis of face; B95.62 Methicillin resistant Staphylococcus aureus infection as the cause of diseases classified elsewhere; F39 Unspecified mood [affective] disorder; Z23 Encounter for immunization; Z71.6 Tobacco abuse counseling; Z88.0 Allergy status to penicillin; Z79.899 Other long term (current) drug therapy
CPT/HCPCS: 36415; 70490; 80048; 80053; 80202; 80307; 82150; 83605; 85025; 85027; 86704; 86706; 86803; 87040; 87070; 87073; 87077; 87186; 87205; 87340; 87389; 90686; 99285; J0696; J1170; J1650; J1885; J1956; J2020; J2060; J2270; J2359; J2930; J3370; J3371

== ENCOUNTER → 2023-07-24 20:02 | Outpatient (BNV) | payer OTHER, SELFPAY | PROVIDERS: Admitting Provider Student in an Organized Health Care Education/Training Program; Emergency Provider Internal Medicine; Visit Provider Internal Medicine | DX: L08.9 Local infection of the skin and subcutaneous tissue, unspecified (principal); L03.90 Cellulitis, unspecified | CPT/HCPCS: 99222; 99232 ==

== ENCOUNTER → 2023-07-24 20:02 | Outpatient (BNV) | payer OTHER, SELFPAY | PROVIDERS: Admitting Provider Student in an Organized Health Care Education/Training Program; Emergency Provider Internal Medicine; Visit Provider Surgery | DX: L08.9 Local infection of the skin and subcutaneous tissue, unspecified (principal); L03.90 Cellulitis, unspecified | CPT/HCPCS: 10021; 10060; 99024; 99222; 99232 ==

== ENCOUNTER → 2023-07-24 20:02 | Outpatient (BNV) | payer OTHER, SELFPAY | PROVIDERS: Admitting Provider Student in an Organized Health Care Education/Training Program; Emergency Provider Internal Medicine; Visit Provider Student in an Organized Health Care Education/Training Program | DX: L08.9 Local infection of the skin and subcutaneous tissue, unspecified (principal) | CPT/HCPCS: 99222; 99232; 99233; 99239; 99499 ==

== ENCOUNTER → 2025-05-12 03:38 | Outpatient (BNV) | payer OTHER, SELFPAY | PROVIDERS: Emergency Provider Emergency Medicine; Visit Provider Radiology Diagnostic Radiology | DX: R22.42 Localized swelling, mass and lump, left lower limb (principal); R60.0 Localized edema | CPT/HCPCS: 73590; 93971 ==

== ENCOUNTER 2025-05-12 04:00 | Emergency (ER) | payer OTHER, SELFPAY ==
--- NOTE | ~2025-05-12 | XR_ITS ---
CLINICAL HISTORY: extremity injury 2 view left tibia-fibula Comparison: None provided Findings There is mild soft tissue edema. No fractures or dislocations. There is mild widening of the medial tibial talar joint space. No joint effusion. There are degenerative changes of the knee predominantly of the lateral compartment with mild joint space narrowing subchondral sclerosis, osteophyte formation.. No radiopaque foreign body. IMPRESSION: No acute fractures Soft tissue edema Degenerative changes Mild widening of the medial tibiotalar distance suspicious for ligamentous injury. This document has been electronically signed by: Joni Garcia MD on 05/12/2025 05:34:24
--- NOTE | ~2025-05-12 | US_ITS ---
EXAMINATION: US TRIPLEX LOWER EXTREMITY, LEFT CLINICAL INFORMATION: Edema and pain, left lower extremity COMPARISON: None available. TECHNIQUE: Color-flow triplex imaging with spectral analysis and compression Doppler were performed on the left lower extremity. FINDINGS: Respiratory variation, normal compression and augmented flow are demonstrated in the interrogated left common femoral vein, superficial femoral vein, profunda femoral vein, popliteal vein and midcalf peroneal and posterior tibial venous segments . There is a 1.8 cm anechoic abnormality at the medial aspect of the left knee without flow on color Doppler interrogation or septations. US/US venous duplex LE IMPRESSION: No acute deep venous thrombosis in the interrogated veins, left lower extremity. Negative for DVT. 1.8 cm fluid collection, medial aspect left knee. Electronically signed by: Louie Marshall MD 05/12/2025 08:03 AM EDT
[2025-05-12 04:08] VITALS: BP 131/84; PULSE 78; RESP 18; TEMP 36.6; O2SAT 96; BMI 24.4
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
--- NOTE | 2025-05-12 07:03 | ED.EXTPRO ---
HPI - Extremity Problem General Chief complaint: Extremity Injury, Lower Stated complaint: left foot pain Time Seen by Provider: 05/12/25 04:33 Source: patient and old records reviewed Mode of arrival: ambulatory Limitations: no limitations History of Present Illness ED Provider: TAN LAZAR Narrative: 34 yo male with no sig PMH who has been hiking and walking a lot over the past few weeks. He normally gets cazares splints but this is much worse. His left leg is painful from anterior cazares - talus to upper cazares. He notes no rash or known trauma. He has had cazares splints but this is different. He has no numbness or weakness. MD Complaint: extremity pain and extremity swelling Onset (ago): day(s) (few) Pain Consistency: constant Location: left and lower extremity Quality: aching Radiation: distal Relieving factors: immobilization Exacerbating factors: weight bearing, walking and palpation Associated symptoms: denies other symptoms Context: other Related Data Home Medications ?Medication ?Instructions ?Recorded ?Confirmed gabapentin 400 mg capsule 400 mg PO TID 07/24/23 07/24/23 ibuprofen 600 mg tablet 600 mg PO Q6H PRN Pain 07/24/23 07/24/23 quetiapine 50 mg tablet 50 mg PO BEDTIME 07/24/23 07/24/23 trazodone 100 mg tablet 100 mg PO BEDTIME PRN Insomnia 07/24/23 07/24/23 Previous Rx's ?Medication ?Instructions ?Recorded sulfamethoxazole 800 1 tab PO BID #14 tabs 07/28/23 mg-trimethoprim 160 mg tablet (Bactrim DS) cyclobenzaprine 10 mg tablet 10 mg PO TID PRN muscle spasm #20 05/12/25 tabs ibuprofen 600 mg tablet 600 mg PO Q6H PRN pain #30 tabs 05/12/25 prednisone 20 mg tablet 40 mg (2 x 20 mg) PO DAILY 5 days 05/12/25 #10 tabs Allergies Allergy/AdvReac Type Severity Reaction Status Date / Time coconut Allergy Severe ANAPHYLAXIS Verified 05/12/25 04:09 Penicillins (PENICILLINS) Allergy Unknown HIVES/DIFFICULTY Verified 05/12/25 04:09 BREATHING Review of Systems Review of Systems: Constitutional : No Fever, No Chills ENT/Mouth : No Ear Pain, No Hoarseness, No sore throat Eyes: No Eye Pain, No Swelling, No Redness, No Foreign Body Cardiovascular : No Chest Pain, No SOB Respiratory : No Cough, No Dyspnea Gastrointestinal : No Nausea, No Vomiting, No Diarrhea, No abdominal Pain Genitourinary : No Dysuria, No Hematuria Musculoskeletal : positive joint pain, pos Myalgias, No Joint Swelling Skin : No Skin lacerations, No rash Neuro : No Weakness, No Numbness, No Loss of Consciousness, No Dizziness, No Headache All other systems reviewed and are negative PMFSH Past Medical History Attestation statement: The following information was validated with the patient. Source: old records reviewed Medical History Skin infection Social History Social History Household Members: Other Household Members Other:: [facility] Housing: House Do you presently have visiting nurse or other home services: No Alcohol intake: current Alcohol intake frequency: 3 or more drinks per day Alcohol type: beer and hard liquor Comment: Camera at outside of the door Patient Tobacco Use Status: Current everyday Tobacco user Tobacco use type: Cigarette Cigarettes Per Day: 10 Smoked in Last 30 Days: Yes Second Hand Smoke Exposure: No Use of substances other than those prescribed or required for medical reasons: Yes Substance Use Type: Marijuana Substance Use Frequency: Daily Last Used Substance: Hours (ago) Advance Directives: No Do you have a plan to hurt others: No Plan service: No Physical Exam Vital Signs: Vital Signs: Last Vital Signs Temp 98.2 F 05/12/25 07:07 Pulse 63 05/12/25 07:07 Resp 18 05/12/25 07:07 BP 128/86 05/12/25 07:07 Pulse Ox 96 05/12/25 07:07 O2 Del Method Room Air 05/12/25 07:07 BMI result Body Mass Index 24.4 Appearance: Alert. Oriented X3. No acute distress. Eyes: Pupils equal, round and reactive to light. ENT: Pharynx normal. Neck: Normal inspection. Neck supple. CVS: Normal heart rate and rhythm. Pulses normal. Respiratory: No respiratory distress. Breath sounds normal. Abdomen: Soft and nontender. Skin: Skin warm and dry. Normal skin color. Normal skin turgor. Extremities: left lower ext no rash, pulses 2+ DP/PT, compartments are soft and compressible left leg is slightly more swollen than right. Neuro: Oriented X 3. No motor deficit. No sensory deficit. CN2-12 intact Medications Administered Discontinued Medications Generic Name Dose Route Start Last Admin Trade Name Mateus PRN Reason Stop Dose Admin Cyclobenzaprine HCl 10 mg 05/12/25 07:44 05/12/25 08:01 Cyclobenzaprine Hcl 10 Mg Tablet PO 05/12/25 07:45 10 mg ONCE ONE Administration Gabapentin 300 mg 05/12/25 06:15 05/12/25 06:29 Gabapentin 300 Mg Capsule PO 05/12/25 06:16 300 mg ONCE ONE Administration Ibuprofen 600 mg 05/12/25 06:15 05/12/25 06:29 Ibuprofen 600 Mg Tablet PO 05/12/25 06:16 600 mg ONCE ONE Administration Medical Decision Making Medical Decision Making [facility] Narrative: 34 yo male no sig PMH here with c/o L leg pain after overuse injury he is NV intact, no signs of infection he does have some swelling, no signs of compartment syndrome at this time will obtain basic labs and CPK/xray and DVT study. Differential Diagnosis Differential Diagnoses: The differential diagnosis associated with the presentation includes DVT, rhabdo, sprain, strain Admission/Observation Consideration of admission/observation: Escalation of care including admission/observation considered work up reassuring fluid collection is not infection no abscess skin exam is normal Lab Data [facility] Lab Attestation statement: I reviewed the patient's lab results. 05/12/25 07:52 05/12/25 07:52 Labs: Lab Results 05/12/25 Range/Units 07:52 WBC 7.0 (4.8-10.8) X10*3/uL RBC 3.97 L (4.60-5.80) X10*6/uL Hgb 13.3 L (14.0-18.0) g/dl Hct 38.4 L (42.0-52.0) % MCV 96.7 (80.0-98.0) fL MCH 33.5 H (27.0-33.0) pg MCHC 34.6 (31.0-36.0) g/dl RDW 13.3 (11.0-16.0) % Plt Count 240 (160-400) X10*3/uL MPV 8.1 L (9.4-12.4) fL Immature Gran % (Auto) 0.3 (0.0-0.4) % Neut % (Auto) 58.2 (45-73) % Lymph % (Auto) 29.2 (20-40) % [place] % (Auto) 9.0 (2-11) % Eos % (Auto) 2.3 (0-4) % Baso % (Auto) 1.0 (0-2) % Lymph # (Auto) 2.1 (1.2-4.9) X10*3/uL [place] # (Auto) 0.6 (0.1-1.2) X10*3/uL Eos # (Auto) 0.2 (0.0-0.4) X10*3/uL Baso # (Auto) 0.1 (0.0-0.2) X10*3/uL Abs Immat Gran (auto) 0.02 (0.00-0.03) X10*3/uL Absolute Neuts (auto) 4.1 (2.0-8.3) x10*3/uL Absolute Nucleated RBC 0.000 (0.0-0.012) X10*3/uL Nucleated RBC % (auto) 0.0 (0.0-0.2) /100WBC Sodium 140 (135-145) mmol/L Potassium 4.4 (3.3-5.1) mmol/L Chloride 109 H (96-108) mmol/L Carbon Dioxide 25 (22-29) mmol/L Anion Gap 10 L (12-20) BUN 13 (9-16) mg/dL Creatinine 0.73 (0.5-1.4) mg/dL Estim Creat Clear Calc 162.6 Estimated GFR > 60 Random Glucose 75 (60-115) mg/dL Calcium 8.3 L D (8.4-10.2) mg/dL Total Creatine Kinase 183 H (38-174) U/L Independent Interpretation I performed an independent interpretation of an: Plain X-Ray (?sprain) and Ultrasound (no DVT) Radiology Impression Discussion of test interpretation with radiology: I have reviewed the radiologist's reading. External Record Review External record reviewed: Outpatient record Prescription Management I considered prescription management with: Pain Medication and Other Procedures Orthopedic Splinting/Casting Injury #1: Side: left Lower Extremity Injury Location: ankle Lower Extremity Immobilizer: AirCast Discharge Plan Discharge Clinical Impression: Ankle sprain and strain, Tendonitis Patient Disposition: Home, Self-Care Instructions: Ankle Stirrup Splint (ED), Tendinitis (ED), Ankle Strain (ED) Additional Instructions: labs reassuring xray shows possible strain no blood clot in legs rest and no hiking for the next 1 week use air splint x 7 days use crutches for 5 days return for redness, fevers, worsening pain/swelling, numbness weakness or any other concerns. Prescriptions: New cyclobenzaprine 10 mg tablet 10 mg PO TID PRN (Reason: muscle spasm) Qty: 20 0RF prednisone 20 mg tablet 40 mg PO DAILY 5 Days Qty: 10 0RF ibuprofen 600 mg tablet 600 mg PO Q6H PRN (Reason: pain) Qty: 30 0RF No Action gabapentin 400 mg capsule 400 mg PO TID trazodone 100 mg tablet 100 mg PO BEDTIME PRN (Reason: Insomnia) ibuprofen 600 mg tablet 600 mg PO Q6H PRN (Reason: Pain) quetiapine 50 mg tablet 50 mg PO BEDTIME sulfamethoxazole-trimethoprim [Bactrim DS] 800-160 mg tablet 1 tab PO BID Qty: 14 0RF Print Language: Slovenian
[2025-05-12 07:07] VITALS: BP 128/86; PULSE 63; RESP 18; TEMP 36.8; O2SAT 96
--- NOTE | 2025-05-12 07:23 | MHC.EDTECH ---
Attempted to obtain labs, but pt is getting imaging done at this time.
[2025-05-12 07:58] LABS: MANUAL DIFF FLAG NO
[2025-05-12 08:04] LABS: Hematocrit 38.4 % (42.0-52.0); Hemoglobin 13.3 g/dl (14.0-18.0); Imm Gran Abs Auto 0.02 X10*3/uL (0.00-0.03); Imm Gran Pct Auto 0.3 % (0.0-0.4); Lymphocytes Absolute Auto 2.1 X10*3/uL (1.2-4.9); Mean Corpuscular HGB Conc 34.6 g/dl (31.0-36.0); Mean Corpuscular Hemoglobin 33.5 pg (27.0-33.0); Mean Corpuscular Volume 96.7 fL (80.0-98.0); NRBC Abs Auto 0.000 X10*3/uL (0.0-0.012); NRBC Pct Auto 0.0 /100WBC (0.0-0.2); Platelet Count 240 X10*3/uL (160-400); Red Blood Count 3.97 X10*6/uL (4.60-5.80); White Blood Count 7.0 X10*3/uL (4.8-10.8)
[2025-05-12 08:22] LABS: Anion Gap 10 (12-20); Blood Urea Nitrogen 13 mg/dL (9-16); Calcium 8.3 mg/dL (8.4-10.2); Carbon Dioxide 25 mmol/L (22-29); Chloride 109 mmol/L (96-108); Creatinine Clr Calc Pharmacy 162.6; Estimated Glomerular Filt Rate > 60; Potassium 4.4 mmol/L (3.3-5.1); Sodium 140 mmol/L (135-145)
--- NOTE | 2025-05-12 08:23 | PC.NURSE ---
Pt here for L foot and L leg pain, 9/10 from hiking. Xray ok and no clots. Air cast applied to patient. Pt is A+OX4, calm, cooperative. Pain management ongoing. RR even and unlabored, denies SOB or CP.
[2025-05-12 08:38] VITALS: BP 139/92; PULSE 68; RESP 18; TEMP 36.6; O2SAT 96
[2025-05-12 08:45] VITALS: BP 139/92; PULSE 68; RESP 18; TEMP 36.6; O2SAT 96
== END 2025-05-12 08:47 | disposition home or self-care (01) ==
PROVIDERS: Emergency Provider Emergency Medicine
DX: S93.402A Sprain of unspecified ligament of left ankle, initial encounter (principal); R60.0 Localized edema; M65.272 Calcific tendinitis, left ankle and foot; M79.672 Pain in left foot; F17.210 Nicotine dependence, cigarettes, uncomplicated; X58.XXXA Exposure to other specified factors, initial encounter; Y93.9 Activity, unspecified; Y92.9 Unspecified place or not applicable; Y99.8 Other external cause status; Z79.899 Other long term (current) drug therapy
CPT/HCPCS: 29515; 36415; 73590; 80048; 82550; 85025; 93971; 99284

== ENCOUNTER 2025-06-08 21:42 | Inpatient (IN) | payer OTHER, SELFPAY ==
[2025-06-08 22:10] VITALS: BP 154/84; PULSE 76; RESP 18; TEMP 36.6; O2SAT 98; BMI 23.9
--- NOTE | 2025-06-08 22:32 | ED.ALCOHOL ---
HPI - Alcohol General Chief Complaint: ETOH/Substance Use Stated Complaint: going through detox Time Seen by Provider: 06/08/25 22:22 History of Present Illness ED Provider: quinn HPI narrative: 34-year-old male self reporting alcohol withdrawal symptoms. 11/19/2024 nips per day Related Data Home Medications ?Medication ?Instructions ?Recorded ?Confirmed gabapentin 400 mg capsule 400 mg PO TID 07/24/23 07/24/23 ibuprofen 600 mg tablet 600 mg PO Q6H PRN Pain 07/24/23 07/24/23 quetiapine 50 mg tablet 50 mg PO BEDTIME 07/24/23 07/24/23 trazodone 100 mg tablet 100 mg PO BEDTIME PRN Insomnia 07/24/23 07/24/23 Previous Rx's ?Medication ?Instructions ?Recorded sulfamethoxazole 800 1 tab PO BID #14 tabs 07/28/23 mg-trimethoprim 160 mg tablet (Bactrim DS) cyclobenzaprine 10 mg tablet 10 mg PO TID PRN muscle spasm #20 05/12/25 tabs ibuprofen 600 mg tablet 600 mg PO Q6H PRN pain #30 tabs 05/12/25 prednisone 20 mg tablet 40 mg (2 x 20 mg) PO DAILY 5 days 05/12/25 #10 tabs Allergies Allergy/AdvReac Type Severity Reaction Status Date / Time coconut Allergy Severe ANAPHYLAXIS Verified 06/08/25 22:14 Penicillins (PENICILLINS) Allergy Unknown HIVES/DIFFICULTY Verified 06/08/25 22:14 BREATHING PMFSH Past Medical History Medical History Skin infection Social History Social History Household Members: Other Household Members Other:: [facility] Housing: House Do you presently have visiting nurse or other home services: No Alcohol intake: current Alcohol intake frequency: 3 or more drinks per day Alcohol type: hard liquor Comment: Camera at outside of the door Patient Tobacco Use Status: Current everyday Tobacco user Tobacco use type: Cigarette Cigarettes Per Day: 10 Smoked in Last 30 Days: Yes Second Hand Smoke Exposure: No Use of substances other than those prescribed or required for medical reasons: No Substance Use Type: Marijuana Advance Directives: No service: No Physical Exam ED Exam Exam: EXAM: Gen: Alert, awake, poor hygiene, unkempt, diaphoretic mildly tremulous Head: Atraumatic Eyes: Anicteric, Normal conjunctiva. ENT: Moist mucosa, no pallor. ? Neck: Supple. Skin: ?No observable rash or bruising on exposed or examined skin Respiratory: Breathing comfortably, No distress.Clear to auscultation bilaterally, symmetric chest expansion, No wheeze, rales, ronchi. Cardiovascular: Regular rate and rhythm. No murmurs or rub. Well perfused periphery, warm extremities. No edema. ? Abdominal: No focal tenderness. Soft, no objective distension. No palpable masses or obvious organomegaly. ?No guarding, no rebound tenderness or other peritoneal findings. : No flank tenderness. Neuro: Alert. Gross movement of all extremities intact. ? Psych: Calm. Cooperative. MSK: No grossly visible deformity. Vital signs: See flowsheet Vital Signs: Vital Signs - 24 hr 06/08/25 22:10 06/08/25 22:33 Temperature 97.8 F 97.8 F Pulse Rate 76 79 Respiratory Rate 18 20 Blood Pressure 154/84 H 147/86 H Pulse Oximetry 98 98 Oxygen Delivery Method Room Air Room Air BMI result Body Mass Index 23.9 Medical Decision Making Medical Decision Making MDM Narrative: Medical Decision Makin-year-old male with polysubstance use disorder, ETOH use disorder now motivated to detox. Last drink in the morning yesterday on the 07 of June. Started feeling withdrawal some symptoms and can not ED for evaluation. He is diaphoretic and anxious appearing. PAWSS Score: 5, high risk. Phenobarb started. 10 milligram/kilogram Preliminary Favored Differential Diagnosis: Alcohol withdrawal, electrolyte derangement, dehydration among additional considered etiologies Testing Interpreted Independently: ?See below for details Radiology or Lab testing Results Reviewed: ?See below for details Consults: ?See below for details Independent Historians/External Chart Reviews: ?See below for details Social Determinants of Health Impacting MDM/Planning: ?See below for details Lab Data MDM Lab Attestation statement: I reviewed the patient's lab results. 06/08/25 22:43 06/08/25 22:43 Labs: Lab Results 06/08/25 Range/Units 22:43 WBC 6.4 (4.8-10.8) X10*3/uL RBC 4.07 L (4.60-5.80) X10*6/uL Hgb 13.7 L (14.0-18.0) g/dl Hct 37.8 L (42.0-52.0) % MCV 92.9 (80.0-98.0) fL MCH 33.7 H (27.0-33.0) pg MCHC 36.2 H (31.0-36.0) g/dl RDW 13.2 (11.0-16.0) % Plt Count 217 (160-400) X10*3/uL MPV 8.4 L (9.4-12.4) fL Immature Gran % (Auto) 0.2 (0.0-0.4) % Neut % (Auto) 42.3 L (45-73) % Lymph % (Auto) 45.2 H (20-40) % [place] % (Auto) 8.6 (2-11) % Eos % (Auto) 2.4 (0-4) % Baso % (Auto) 1.3 (0-2) % Lymph # (Auto) 2.9 (1.2-4.9) X10*3/uL [place] # (Auto) 0.6 (0.1-1.2) X10*3/uL Eos # (Auto) 0.2 (0.0-0.4) X10*3/uL Baso # (Auto) 0.1 (0.0-0.2) X10*3/uL Abs Immat Gran (auto) 0.01 (0.00-0.03) X10*3/uL Absolute Neuts (auto) 2.7 (2.0-8.3) x10*3/uL Absolute Nucleated RBC 0.000 (0.0-0.012) X10*3/uL Nucleated RBC % (auto) 0.0 (0.0-0.2) /100WBC Sodium 141 (135-145) mmol/L Potassium 3.8 (3.3-5.1) mmol/L Chloride 110 H (96-108) mmol/L Carbon Dioxide 25 (22-29) mmol/L Anion Gap 10 L (12-20) BUN 14 (9-16) mg/dL Creatinine 0.88 (0.5-1.4) mg/dL Estim Creat Clear Calc 134.9 Estimated GFR > 60 Random Glucose 92 (60-115) mg/dL Calcium 8.8 D (8.4-10.2) mg/dL Magnesium 2.1 (1.6-2.6) mg/dL Total Bilirubin 0.3 (0.0-1.0) mg/dL AST 28 (5-37) U/L ALT 25 (0-40) U/L Alkaline Phosphatase 55 (39-117) U/L Total Protein 6.2 L (6.5-8.0) g/dL Albumin 4.0 (3.5-5.0) g/dL Lipase 21 (8-78) U/L TSH 1.77 (0.32-4.0) uIU/mL Urine Opiates Screen Not Detected (Not Detect) Ur Buprenorphine Scrn Not Detected (Not Detect) ng/mL Ur Oxycodone Screen Not Detected (Not Detect) ng/mL Urine Methadone Screen Not Detected (Not Detect) ng/mL Urine Fentanyl Screen POSITIVE H (Not Detect) Ur Barbiturates Screen POSITIVE H (Not Detect) Ur Phencyclidine Scrn Not Detected (Not Detect) Ur Amphetamines Screen Not Detected (Not Detect) U Benzodiazepines Scrn Not Detected (Not Detect) Urine Cocaine Screen POSITIVE H (Not Detect) U Marijuana (THC) Screen POSITIVE H (Not Detect) Ethyl Alcohol < 10 mg/dL Attestation Attending Attestation: Prediction of Alcohol Withdrawal Severity Scale from [employer] on 06/09/2025 All calculations should be rechecked by clinician prior to use RESULT SUMMARY: 5 points PAWSS High risk Likelihood ratio 174 for complicated RICKEY (withdrawal hallucinosis, withdrawal-related seizures, or delirium tremens) INPUTS: Patient consumed any amount of alcohol within the last 30 days OR patient had a positive blood alcohol level upon admission ?> 1 = Yes Have you been recently intoxicated or drunk within the last 30 days? ?> 1 = Yes Have you ever experienced previous episodes of alcohol withdrawal? ?> 1 = Yes Have you ever experienced withdrawal seizures? ?> 0 = No Have you ever experienced delirium tremens (DTs)? ?> 0 = No Have you ever undergone alcohol rehabilitation treatment (i.e., inpatient or outpatient treatment programs, or Alcoholics Anonymous attendance)? ?> 0 = No Have you ever experienced blackouts? ?> 1 = Yes Have you combined alcohol with other ?downers? (e.g. benzodiazepines, barbiturates) during the last 90 days? ?> 1 = Yes Have you combined alcohol with any other substance of abuse during the last 90 days? ?> 1 = Yes Positive blood alcohol level (BAL) on presentation ?> 0 = No Evidence of increased autonomic activity (i.e., HR >120, tremor, sweating, agitation, nausea) ?> 0 = No Medications Administered Discontinued Medications Generic Name Dose Route Start Last Admin Trade Name Mateus PRN Reason Stop Dose Admin Thiamine HCl 100 mg/ Sodium 101 mls @ 202 mls/hr 06/09/25 00:01 06/09/25 01:06 Chloride IV 06/09/25 00:30 202 mls/hr ONCE ONE Administration Phenobarbital Sodium 328 mg 06/08/25 23:00 06/08/25 23:08 Phenobarbital Sodium 130 Mg/Ml Im Once IM 06/08/25 23:01 328 mg ONCE@[facility] Administration Discharge Plan Discharge Clinical Impression: Alcohol withdrawal Patient Disposition: Admitted As Inpatient
[2025-06-08 22:33] VITALS: BP 147/86; PULSE 79; RESP 20; TEMP 36.6; O2SAT 98
[2025-06-08 22:55] LABS: MANUAL DIFF FLAG NO
[2025-06-08 22:56] LABS: Hematocrit 37.8 % (42.0-52.0); Hemoglobin 13.7 g/dl (14.0-18.0); Imm Gran Abs Auto 0.01 X10*3/uL (0.00-0.03); Imm Gran Pct Auto 0.2 % (0.0-0.4); Lymphocytes Absolute Auto 2.9 X10*3/uL (1.2-4.9); Mean Corpuscular HGB Conc 36.2 g/dl (31.0-36.0); Mean Corpuscular Hemoglobin 33.7 pg (27.0-33.0); Mean Corpuscular Volume 92.9 fL (80.0-98.0); NRBC Abs Auto 0.000 X10*3/uL (0.0-0.012); NRBC Pct Auto 0.0 /100WBC (0.0-0.2); Platelet Count 217 X10*3/uL (160-400); Red Blood Count 4.07 X10*6/uL (4.60-5.80); White Blood Count 6.4 X10*3/uL (4.8-10.8)
[2025-06-08 23:08] LABS: Cannabinoid Screen Urine POSITIVE (Not Detect)
[2025-06-08] MEDS: PHENobarbitaL sodium 130 MG/ML IM ONCE 328 MG IM (23:08)
[2025-06-08 23:22] LABS: Alanine Aminotransferase 25 U/L (0-40); Albumin Level 4.0 g/dL (3.5-5.0); Alkaline Phosphatase 55 U/L (39-117); Anion Gap 10 (12-20); Aspartate Amino Transferase 28 U/L (5-37); Blood Urea Nitrogen 14 mg/dL (9-16); Calcium 8.8 mg/dL (8.4-10.2); Carbon Dioxide 25 mmol/L (22-29); Chloride 110 mmol/L (96-108); Creatinine Clr Calc Pharmacy 134.9; Estimated Glomerular Filt Rate > 60; Lipase 21 U/L (8-78); Magnesium 2.1 mg/dL (1.6-2.6); Potassium 3.8 mmol/L (3.3-5.1); Sodium 141 mmol/L (135-145); Total Protein 6.2 g/dL (6.5-8.0)
[2025-06-08 23:35] LABS: Thyroid Stimulating Hormone 1.77 uIU/mL (0.32-4.0)
--- NOTE | 2025-06-08 23:59 | PM.IMHP ---
History of Present Illness Date of Service: 06/08/25 Attending physician on admission: Mohsen Najera Chief Complaint: detox Patient is a 34-year-old male with a past medical history significant for alcohol use disorder and polysubstance use disorder, who presented to the ED requesting detox from alcohol. Reports his last drink was 0800 yesterday. He usually drinks about 20-25 nips per day for the past 8 years. Upon arrival he was experiencing tremors, body aches, headache with photophobia, anxiety, nausea, numbness in the extremities. Still feeling anxious, with body aches and sweats. no hx of withdrawal seizures. he admits to occasional marijuana and cocaine use. He denies SI or HI. UTox positive for fentanyl, barbiturates, cocaine, marijuana. Alcohol level undetectable upon arrival. Review of Systems Constitutional: Constitutional: Reports body ache(s), Denies chills, Denies fatigue and Reports headache(s) Eyes: Eyes: Denies change in vision and Denies other visual disturbances ENT: Reports headache(s), Denies nasal congestion, Denies nasal discharge and Denies sore throat Cardiovascular: Cardiovascular: Denies chest pain, Denies rapid heart rate, Denies leg edema, Denies lightheadedness and Denies dyspnea Respiratory: Respiratory: Denies chest congestion, Denies cough, Denies dyspnea and Denies wheezing Gastrointestinal: Gastrointestinal: Denies abdominal pain, Denies diarrhea and Reports nausea Genitourinary: Genitourinary: Denies dysuria Musculoskeletal: Musculoskeletal: Reports myalgias Integumentary/Breasts: Skin/Breast: Denies rash Neurologic: Denies confusion and Reports headache(s) Psychiatric: Psychiatric: Denies confusion Endocrine: Endocrine: Denies fatigue Hematologic/Lymphatic: Hematologic/Lymphatic: Denies easy bleeding and Denies easy bruising Allergic/Immunologic: Allergic/Immunologic: Denies wheezing [facility] Medical History Skin infection Social History Household Members: Other Household Members Other:: jail Housing: House Do you presently have visiting nurse or other home services: No Alcohol intake: current Alcohol intake frequency: 3 or more drinks per day Alcohol type: hard liquor Comment: Camera at outside of the door Patient Tobacco Use Status: Current everyday Tobacco user Tobacco use type: Cigarette Cigarettes Per Day: 10 Smoked in Last 30 Days: Yes Second Hand Smoke Exposure: No Use of substances other than those prescribed or required for medical reasons: No Substance Use Type: Marijuana Advance Directives: No service: No Meds Allergies Allergy/AdvReac Type Severity Reaction Status Date / Time coconut Allergy Severe ANAPHYLAXIS Verified 06/08/25 22:14 Penicillins (PENICILLINS) Allergy Unknown HIVES/DIFFICULTY Verified 06/08/25 22:14 BREATHING Active Medications: Current Medications Acetaminophen (Acetaminophen 325 Mg Tablet) 975 mg PO Q6H PRN PRN Reason: Pain, Mild 1-3,fever,headache Calcium Carbonate (Calcium Carbonate 750 Mg Tab.Chew) 750 mg PO Q4H PRN PRN Reason: Heartburn Enoxaparin Sodium (Enoxaparin Sodium 40 Mg/0.4 Ml Syringe) 40 mg SUBCUT Q24H [facility] Folic Acid (Folic Acid 1 Mg Tablet) 1 mg PO DAILY [facility] Stop: 06/12/25 08:59 Magnesium Hydroxide (Milk Of Magnesia 30 Ml Oral.Susp) 30 ml PO DAILY PRN PRN Reason: Constipation Melatonin (Melatonin 3 Mg Tablet) 6 mg PO BEDTIME PRN PRN Reason: Insomnia Multivitamins/Vitamin C (Multivitamin Tablet) 1 tab PO DAILY [facility] Stop: 06/12/25 08:59 Oxycodone HCl (Oxycodone Hcl Immed Release 5 Mg Tablet) 5 mg PO Q6H PRN PRN Reason: Pain, Severe (Pain Scale 7-10) Phenobarbital (Phenobarbital 30 Mg Tablet) 60 mg PO BID [facility] Stop: 06/11/25 09:01 Phenobarbital (Phenobarbital 30 Mg Tablet) 30 mg PO BID [facility] Stop: 06/13/25 09:01 Phenobarbital (Phenobarbital 30 Mg Tablet) 30 mg PO DAILY [facility] Stop: 06/15/25 09:01 Phenobarbital Sodium (Phenobarbital Sodium 130 Mg/Ml Vial Im Q3hx2) 247 mg IM 0200,0500 [facility] Stop: 06/09/25 05:01 Sodium Chloride (0.9 % Sodium Chloride Flush 3 Ml Syringe) 3 ml IVFLUSH QSHIFT [facility] Thiamine HCl (Thiamine Hcl 100 Mg Tablet) 100 mg PO DAILY [facility] Stop: 06/12/25 08:59 Home Medications ?Medication ?Instructions ?Recorded ?Confirmed ?Last Taken ?Type gabapentin 400 mg capsule 400 mg PO TID 07/24/23 07/24/23 Unknown History ibuprofen 600 mg tablet 600 mg PO Q6H PRN Pain 07/24/23 07/24/23 Unknown History quetiapine 50 mg tablet 50 mg PO BEDTIME 07/24/23 07/24/23 Unknown History trazodone 100 mg tablet 100 mg PO BEDTIME PRN Insomnia 07/24/23 07/24/23 Unknown History Physical Exam Vital Signs and Narrative: Vital Signs: Last Vital Signs Temp 97.8 F 06/08/25 22:33 Pulse 79 06/08/25 22:33 Resp 20 06/08/25 22:33 BP 147/86 H 06/08/25 22:33 Pulse Ox 98 06/08/25 22:33 O2 Del Method Room Air 06/08/25 22:33 BMI result Body Mass Index 23.9 General: AOx3, no acute distress Resp: CTA bilaterally CVS: S1, S2, RRR GI: +BS, NT, no distention Skin: Warm, dry Neuro: Cranial nerves II-XII grossly intact bilaterally. Motor grossly intact bilaterally Extremities: No edema Psych: Appropriate affect Const: General: No confusion Orientation/consciousness: No confusion Neuro: General: No confusion Results Labs 06/08/25 22:43 06/08/25 22:43 Labs: Laboratory Results - last 24 hr 06/08/25 22:43 MCV 92.9 MCH 33.7 H MCHC 36.2 H RDW 13.2 Plt Count 217 MPV 8.4 L Immature Gran % (Auto) 0.2 Neut % (Auto) 42.3 L Lymph % (Auto) 45.2 H [place] % (Auto) 8.6 Eos % (Auto) 2.4 Baso % (Auto) 1.3 Lymph # (Auto) 2.9 [place] # (Auto) 0.6 Eos # (Auto) 0.2 Baso # (Auto) 0.1 Abs Immat Gran (auto) 0.01 Absolute Neuts (auto) 2.7 Absolute Nucleated RBC 0.000 Nucleated RBC % (auto) 0.0 Anion Gap 10 L Estim Creat Clear Calc 134.9 Estimated GFR > 60 Random Glucose 92 Calcium 8.8 D Magnesium 2.1 Total Bilirubin 0.3 AST 28 ALT 25 Alkaline Phosphatase 55 Total Protein 6.2 L Albumin 4.0 Lipase 21 TSH 1.77 Urine Opiates Screen Not Detected Ur Buprenorphine Scrn Not Detected Ur Oxycodone Screen Not Detected Urine Methadone Screen Not Detected Urine Fentanyl Screen POSITIVE H Ur Barbiturates Screen POSITIVE H Ur Phencyclidine Scrn Not Detected Ur Amphetamines Screen Not Detected U Benzodiazepines Scrn Not Detected Urine Cocaine Screen POSITIVE H U Marijuana (THC) Screen POSITIVE H Ethyl Alcohol < 10 Assessment and Plan (1) Alcohol withdrawal: Status: Acute (2) Alcohol abuse: Status: Acute (3) Polysubstance abuse: Status: Acute Plan Patient is a 34-year-old male with a past medical history significant for alcohol use disorder and polysubstance use disorder, who presented to the ED requesting detox from alcohol. Alcohol withdrawal/alcohol abuse - alcohol level undetectable arrival - patient reports 20 - 25 nips per day for the past 8 years - CIWA scores elevated upon arrival up to 18, started on a phenobarb - monitor CIWA every 4 hours - seizure precautions - addiction med consult - thiamine 100 mg IV x1 - daily p.o. thiamine, multivitamin, folic acid - monitor on telemetry Polysubstance abuse - UTox positive for fentanyl, barbiturates, cocaine and marijuana - addiction med consult tobacco use disorder - smoking cessation encouraged - nicotine gum Full code VTE prophylaxis: Lovenox Patient with alcohol withdrawal secondary to alcohol abuse, requiring admission for at least 2 midnight stay for medical management of alcohol withdrawal. Quality Stroke Does the patient have a stroke diagnosis?: No VTE Prior VTE?: No VTE Risk Level:: Medical - moderate - high VTE Device Contraindication: Treatment Not Indicated VTE Drug Contraindication: N/A - Med Ordered
[2025-06-09] VITALS (9 sets, daily range): BP systolic 121–144; BP diastolic 77–98; PULSE 62–76; RESP 14–18; TEMP 36.5–36.8; O2SAT 97–98; BMI 22.8
--- OUTSIDE RECORDS SUMMARY | 2025-06-09 00:06 | XMS_ITS ---
Author Name [facility] Organization Unknown Care Team Organization Name Specialty Phone Email Start Date End Da te [facility] Yasmine Menjivar MD Primary Care 02/04/2023 05/18/2024 [facility] Ramin Camacho Primary Care 08/07/20222023
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
[2025-06-09] MEDS: Thiamine HCL 100 MG in 0.9 % Sodium Chloride 100 ML 202 MG IV (01:06)
[2025-06-09] MEDS: PHENobarbitaL sodium 130 MG/ML VIAL IM Q3Hx2 247 MG IM ×3 (01:56→19:55)
[2025-06-09] MEDS: 0.9 % Sodium Chloride Flush 3 ML SYRINGE IVFLUSH ×3 (01:58→19:57)
[2025-06-09] MEDS: oxyCODONE HCl Immed Release 5 MG TABLET PO ×4 (02:01→23:18)
[2025-06-09 05:11] LABS: Hematocrit 39.7 % (42.0-52.0); Hemoglobin 13.5 g/dl (14.0-18.0); Mean Corpuscular HGB Conc 34.0 g/dl (31.0-36.0); Mean Corpuscular Hemoglobin 33.4 pg (27.0-33.0); Mean Corpuscular Volume 98.3 fL (80.0-98.0); NRBC Abs Auto 0.000 X10*3/uL (0.0-0.012); NRBC Pct Auto 0.0 /100WBC (0.0-0.2); Platelet Count 213 X10*3/uL (160-400); Red Blood Count 4.04 X10*6/uL (4.60-5.80); White Blood Count 4.9 X10*3/uL (4.8-10.8)
[2025-06-09 05:32] LABS: Anion Gap 10 (12-20); Blood Urea Nitrogen 11 mg/dL (9-16); Calcium 8.7 mg/dL (8.4-10.2); Carbon Dioxide 28 mmol/L (22-29); Chloride 109 mmol/L (96-108); Creatinine Clr Calc Pharmacy 122.4; Estimated Glomerular Filt Rate > 60; Potassium 3.7 mmol/L (3.3-5.1); Sodium 143 mmol/L (135-145)
--- NOTE | 2025-06-09 08:56 | PC.NURSE ---
assumed care of pt at 0645. pt a&ox4. vss and up to date. nsr on the library monitor. updated CIWA = 8. pt reports generalized body aches all over. prn medication utilized. effectiveness pending. pt otherwise in no apparent distress. on RA w/o difficulty. no sob/wob noted. respirations even/unlabored. pending bed assignment. plan of care ongoing. call gonzalez placed within reach.
--- NOTE | 2025-06-09 09:49 | MHC.CM.PN ---
Attempted to meet with patient in regards to discharge planning. Patient currently sleeping. No family present. Will attempt to meet again. Continue to monitor for d/c needs.
--- NOTE | 2025-06-09 11:07 | PHA.MEDREC ---
Addendum entered by Priyanka Swain RPh 06/09/25 13:01: MED REC REVIEWED BY [facility] Original Note: Pharmacy Consult ? Medication Reconciliation Pharmacy has completed the medication reconciliation. Spoke with pt and he stated he is not taking any medications at this time and has not taken any medications in about 1 year.
--- NOTE | 2025-06-09 11:10 | HO.ADDICTCON ---
History of Present Illness Date of Service: 06/09/2025 Chief Complaint: going through detox Sources of Information: patient interviewed and chart reviewed HPI Narrative: Patient is a 34 year old male who presented to [facility] ED reporting acute alcohol withdrawal sx. He reported drinking 20-25 nips daily, with last drink being Saturday morning (06/07). Phenobarbital taper started in ED. UDS completed, +fentanyl, cocaine Patient seen X2 by t/w in ED room 8. First meeting patient was calm, cooperative and engaged in interview. Reporting body aches, joint pain, nausea and headache. He denied any opiate use. States that sx are related to alcohol use only. Stated he just received medicine for his headache, and waiting for it to kick in . Patient presented as restless, anxious, but appropriate Second time, patient very agitated, making statements that he was going to leave Stating that the medication he is getting for pain is not sufficient T/W again inquired about fentanyl use, and concern for possible withdrawal Patient states that he occasionally uses cocaine, and recently thought there may be fentanyl in his cocaine so he stopped using it t/w offered methadone to treat possible withdrawal sx, and patient quite unhappy with this suggestion. Stating numerous times that it is not opiate withdrawal, it is pain from alcohol withdrawal. Reporting a headache and joint pain. T/w advised patient that opiates are not indicated in treating alcohol withdrawal, and noted that he received oxycodone 5mg one hour earlier (which is not the norm for headache management) T/w discussed other options including gabapentin for anxiety and restlessness. Patient declined. Stated that morphine or Dilaudid are what have helped in the past T/W again advised patient that these would not be ordered. Overall patient presented as irritable, no tremor or diaphoresis noted, VS WNL, reporting nausea but able to eat. Ambulating around the room without issue Medical Evaluation Reviewed: Yes Review of Systems Constitutional: Reports as per HPI Diagnostics Vital Signs (24Hr): Vital Signs - 24 hr 06/08/25 22:10 06/08/25 22:33 06/09/25 01:15 Temperature 97.8 F 97.8 F 97.8 F Pulse Rate 76 79 73 Respiratory Rate 18 20 18 Blood Pressure 154/84 H 147/86 H 129/77 Pulse Oximetry 98 98 97 Oxygen Delivery Method Room Air Room Air Room Air 06/09/25 02:11 06/09/25 04:43 06/09/25 08:40 Temperature 98.2 F 97.7 F Pulse Rate 76 71 65 Respiratory Rate 17 15 14 Blood Pressure 133/83 121/84 121/90 H Pulse Oximetry 97 98 97 Oxygen Delivery Method Room Air Room Air Room Air BMI result Body Mass Index 23.9 Labs 06/09/25 04:34 06/09/25 04:34 Labs: Laboratory Results - last 48 hr 06/08/25 06/09/25 22:43 04:34 WBC 6.4 4.9 RBC 4.07 L 4.04 L Hgb 13.7 L 13.5 L Hct 37.8 L 39.7 L MCV 92.9 98.3 H D MCH 33.7 H 33.4 H MCHC 36.2 H 34.0 RDW 13.2 13.2 Plt Count 217 213 MPV 8.4 L 8.8 L Immature Gran % (Auto) 0.2 Neut % (Auto) 42.3 L Lymph % (Auto) 45.2 H [place] % (Auto) 8.6 Eos % (Auto) 2.4 Baso % (Auto) 1.3 Lymph # (Auto) 2.9 [place] # (Auto) 0.6 Eos # (Auto) 0.2 Baso # (Auto) 0.1 Abs Immat Gran (auto) 0.01 Absolute Neuts (auto) 2.7 Absolute Nucleated RBC 0.000 0.000 Nucleated RBC % (auto) 0.0 0.0 Sodium 141 143 Potassium 3.8 3.7 Chloride 110 H 109 H Carbon Dioxide 25 28 Anion Gap 10 L 10 L BUN 14 11 Creatinine 0.88 0.97 Estim Creat Clear Calc 134.9 122.4 Estimated GFR > 60 > 60 Random Glucose 92 69 Calcium 8.8 D 8.7 Magnesium 2.1 Total Bilirubin 0.3 AST 28 ALT 25 Alkaline Phosphatase 55 Total Protein 6.2 L Albumin 4.0 Lipase 21 TSH 1.77 Urine Opiates Screen Not Detected Ur Buprenorphine Scrn Not Detected Ur Oxycodone Screen Not Detected Urine Methadone Screen Not Detected Urine Fentanyl Screen POSITIVE H Ur Barbiturates Screen POSITIVE H Ur Phencyclidine Scrn Not Detected Ur Amphetamines Screen Not Detected U Benzodiazepines Scrn Not Detected Urine Cocaine Screen POSITIVE H U Marijuana (THC) Screen POSITIVE H Ethyl Alcohol < 10 Mental Status Exam Mental Status Exam Patient Appearance: Unkempt and Malodorous Level of Consciousness: Awake and Alert Patient Behavior: Restless Mood Description: Anxious Affect Description: Anxious and Angry Speech Pattern: Clear Hallucinations: None Thought Process: Intact Thought Content: positive for Intact Judgement: Fair Medications Medications Current Medications Acetaminophen (Acetaminophen 325 Mg Tablet) 975 mg PO Q6H PRN PRN Reason: Pain, Mild 1-3,fever,headache Last Admin: 06/09/25 04:51 Dose: 975 mg Calcium Carbonate (Calcium Carbonate 750 Mg Tab.Chew) 750 mg PO Q4H PRN PRN Reason: Heartburn Enoxaparin Sodium (Enoxaparin Sodium 40 Mg/0.4 Ml Syringe) 40 mg SUBCUT Q24H [facility] Last Admin: 06/09/25 08:42 Dose: 40 mg Folic Acid (Folic Acid 1 Mg Tablet) 1 mg PO DAILY [facility] Stop: 06/12/25 08:59 Last Admin: 06/09/25 08:42 Dose: 1 mg Magnesium Hydroxide (Milk Of Magnesia 30 Ml Oral.Susp) 30 ml PO DAILY PRN PRN Reason: Constipation Melatonin (Melatonin 3 Mg Tablet) 6 mg PO BEDTIME PRN PRN Reason: Insomnia Multivitamins/Vitamin C (Multivitamin Tablet) 1 tab PO DAILY [facility] Stop: 06/12/25 08:59 Last Admin: 06/09/25 08:42 Dose: 1 tab Nicotine Polacrilex (Nicotine Polacrilex 2 Mg Gum) 2 mg BUCCAL Q2H PRN PRN Reason: Nicotine Cravings Ondansetron HCl (Ondansetron Hcl 4 Mg/2 Ml Vial) 4 mg IVPUSH Q4H PRN PRN Reason: Nausea and Vomiting Oxycodone HCl (Oxycodone Hcl Immed Release 5 Mg Tablet) 5 mg PO Q6H PRN PRN Reason: Pain, Severe (Pain Scale 7-10) Last Admin: 06/09/25 08:48 Dose: 5 mg Phenobarbital (Phenobarbital 30 Mg Tablet) 60 mg PO BID [facility] Stop: 06/11/25 09:01 Phenobarbital (Phenobarbital 30 Mg Tablet) 30 mg PO BID [facility] Stop: 06/13/25 09:01 Phenobarbital (Phenobarbital 30 Mg Tablet) 30 mg PO DAILY [facility] Stop: 06/15/25 09:01 Sodium Chloride (0.9 % Sodium Chloride Flush 3 Ml Syringe) 3 ml IVFLUSH QSHIFT [facility] Last Admin: 06/09/25 07:52 Dose: Not Given Thiamine HCl (Thiamine Hcl 100 Mg Tablet) 100 mg PO DAILY [facility] Stop: 06/12/25 08:59 Last Admin: 06/09/25 08:42 Dose: 100 mg Tramadol HCl (Tramadol Hcl 50 Mg Tablet) 50 mg PO Q6H PRN PRN Reason: Pain, Moderate(Pain Scale 4-6) Allergies Allergies Allergy/AdvReac Type Severity Reaction Status Date / Time coconut Allergy Severe ANAPHYLAXIS Verified 06/08/25 22:14 Penicillins (PENICILLINS) Allergy Unknown HIVES/DIFFICULTY Verified 06/08/25 22:14 BREATHING Assessment & Plan Assessment & Plan (1) Alcohol withdrawal: Qualifiers: Complication of substance-induced condition: uncomplicated Qualified Code(s): F10.930 - Alcohol use, unspecified with withdrawal, uncomplicated Status: Acute Code(s): F10.939 - Alcohol use, unspecified with withdrawal, unspecified Assessment and Plan: Phenobarbital taper in place. CIWA scores improved thiamine and folic acid gabapentin 100mg TID PRN for restlessness, can increase dose if tolerated by patient concern that patient may be experiencing opiate withdrawal due to requests for opiates and reported sx indicative of withdrawal. Will order PRN methadone should patient change his mind material liaison to follow up and discuss plan following admission Total time managing care of this patient today ____ minutes. PMFSH Past Medical History Medical History Skin infection Social History Social History Household Members: Other Household Members Other:: retirement Housing: House Do you presently have visiting nurse or other home services: No Alcohol intake: current Alcohol intake frequency: 3 or more drinks per day Alcohol type: hard liquor Comment: Camera at outside of the door Patient Tobacco Use Status: Never used Tobacco Tobacco use type: Cigarette Cigarettes Per Day: 10 Smoked in Last 30 Days: Yes Second Hand Smoke Exposure: No Use of substances other than those prescribed or required for medical reasons: No Substance Use Type: Marijuana Advance Directives: No service: No
--- NOTE | 2025-06-09 11:15 | PC.NURSE ---
Pt very agitated. States that the addiction medicine MD saw him and said they would order stronger pain meds . Pt medicated per NOV. Pt states nothing has helped and would like to leave and drink to make the pain go away . MD notified.
--- NOTE | 2025-06-09 11:31 | PC.NURSE ---
Addiction Medicine at bedside to see the pt. Pt very agitated and wanting dilaudid. Threatening to leave. After given options, pt is laying back down on stretcher waiting for admit bed.
--- NOTE | 2025-06-09 13:00 | PC.NURSE ---
Pt increasingly agitated. C/o pain and unable to tolerate food provided. MD Raines at bedside and will reorder phenobarbital protocol. Pt agreeable to plan.
[2025-06-09] MEDS: PHENobarbitaL sodium 130 MG/ML IM ONCE 328 MG IM (13:19)
--- NOTE | 2025-06-09 13:48 | PC.NURSE ---
Pt given phenobarb per NOV. Offered lunch tray. Initially pt said he could not eat it and requested soup. This RN offered to call the kitchen and request soup for pt. Pt then picked up lunch plate and started eating. Saying that this will have to do and not to call for soup. Approx 5min later pt pacing around room and vomiting. Throwing things around room. Stating he was going to leave because he isn't being taken care of. States no one is giving him food he can eat. States no one was giving him the meds he needed. Pt reminded he just received phenobarb IM and that it doens't take effect immediately. Reminded that he just had a discussion with DR Raines regarding new plan to restart phenobarb protocol. Pt was again offered soup and zofran. Pt very argumentative. Refusing zofran and other food options. Security at bedside. MD Raines notified. Pt was deescalated by security, security was able to get pt soup. Pt was then ok with staying and eating soup. Will continue to monitor.
--- NOTE | 2025-06-09 15:15 | P.PNIM_ITS ---
Subjective Subjective Date of Service: 06/09/25 Interval History: Agitated overnight. Stating medication is not handling situation Review of Systems Unable to obtain secondary to agitation Physical Exam 2 Vital Signs: Vital Signs: Last Vital Signs Temp 97.7 F 06/09/25 13:07 Pulse 66 06/09/25 13:07 Resp 16 06/09/25 13:07 BP 139/98 H 06/09/25 13:07 Pulse Ox 98 06/09/25 13:07 O2 Del Method Room Air 06/09/25 13:07 BMI result Body Mass Index 23.9 Const: Other: Awake alert no acute distress Resp: Other: Clear to auscultation bilaterally no rales rhonchi or wheezes Cardio: Other: No S4; positive S1-S2; no S3 murmurs rubs or gallops GI: Other: No S4; positive S1-S2; no S3 murmurs rubs or gallops Extrem: Other: No edema bilaterally Objective Data Active Medications Acetaminophen (Acetaminophen 325 Mg Tablet) 975 mg PO Q6H PRN PRN Reason: Pain, Mild 1-3,fever,headache Last Admin: 06/09/25 04:51 Dose: 975 mg Documented By: ELINA Calcium Carbonate (Calcium Carbonate 750 Mg Tab.Chew) 750 mg PO Q4H PRN PRN Reason: Heartburn Diazepam (Diazepam 10 Mg/2 Ml Cartridge) 10 mg IVPUSH Q8H PRN PRN Reason: Agitation Enoxaparin Sodium (Enoxaparin Sodium 40 Mg/0.4 Ml Syringe) 40 mg SUBCUT Q24H [facility] Last Admin: 06/09/25 08:42 Dose: 40 mg Documented By: AMA Folic Acid (Folic Acid 1 Mg Tablet) 1 mg PO DAILY [facility] Stop: 06/12/25 08:59 Last Admin: 06/09/25 08:42 Dose: 1 mg Documented By: AMA Gabapentin (Gabapentin 100 Mg Capsule) 100 mg PO TID PRN PRN Reason: anxiety/restlessness Magnesium Hydroxide (Milk Of Magnesia 30 Ml Oral.Susp) 30 ml PO DAILY PRN PRN Reason: Constipation Melatonin (Melatonin 3 Mg Tablet) 6 mg PO BEDTIME PRN PRN Reason: Insomnia Multivitamins/Vitamin C (Multivitamin Tablet) 1 tab PO DAILY [facility] Stop: 06/12/25 08:59 Last Admin: 06/09/25 08:42 Dose: 1 tab Documented By: AMA Nicotine Polacrilex (Nicotine Polacrilex 2 Mg Gum) 2 mg BUCCAL Q2H PRN PRN Reason: Nicotine Cravings Ondansetron HCl (Ondansetron Hcl 4 Mg/2 Ml Vial) 4 mg IVPUSH Q4H PRN PRN Reason: Nausea and Vomiting Oxycodone HCl (Oxycodone Hcl Immed Release 5 Mg Tablet) 5 mg PO Q6H PRN PRN Reason: Pain, Severe (Pain Scale 7-10) Last Admin: 06/09/25 08:48 Dose: 5 mg Documented By: AMA Phenobarbital (Phenobarbital 30 Mg Tablet) 30 mg PO BID [facility] Stop: 06/13/25 21:01 Phenobarbital (Phenobarbital 30 Mg Tablet) 30 mg PO DAILY [facility] Stop: 06/15/25 09:01 Phenobarbital (Phenobarbital 30 Mg Tablet) 60 mg PO BID [facility] Stop: 06/11/25 21:01 Phenobarbital Sodium (Phenobarbital Sodium 130 Mg/Ml Vial Im Q3hx2) 247 mg IM Q3H [facility] Stop: 06/10/25 20:01 Sodium Chloride (0.9 % Sodium Chloride Flush 3 Ml Syringe) 3 ml IVFLUSH QSHIFT [facility] Last Admin: 06/09/25 07:52 Dose: Not Given Documented By: AMA Non-Admin Reason: Patient Asleep Thiamine HCl (Thiamine Hcl 100 Mg Tablet) 100 mg PO DAILY [facility] Stop: 06/12/25 08:59 Last Admin: 06/09/25 08:42 Dose: 100 mg Documented By: AMA Tramadol HCl (Tramadol Hcl 50 Mg Tablet) 50 mg PO Q6H PRN PRN Reason: Pain, Moderate(Pain Scale 4-6) Labs 06/09/25 04:34 06/09/25 04:34 Labs: Laboratory Results - last 24 hr 06/08/25 06/09/25 22:43 04:34 MCV 92.9 98.3 H D MCH 33.7 H 33.4 H MCHC 36.2 H 34.0 RDW 13.2 13.2 Plt Count 217 213 MPV 8.4 L 8.8 L Immature Gran % (Auto) 0.2 Neut % (Auto) 42.3 L Lymph % (Auto) 45.2 H [place] % (Auto) 8.6 Eos % (Auto) 2.4 Baso % (Auto) 1.3 Lymph # (Auto) 2.9 [place] # (Auto) 0.6 Eos # (Auto) 0.2 Baso # (Auto) 0.1 Abs Immat Gran (auto) 0.01 Absolute Neuts (auto) 2.7 Absolute Nucleated RBC 0.000 0.000 Nucleated RBC % (auto) 0.0 0.0 Anion Gap 10 L 10 L Estim Creat Clear Calc 134.9 122.4 Estimated GFR > 60 > 60 Random Glucose 92 69 Calcium 8.8 D 8.7 Magnesium 2.1 Total Bilirubin 0.3 AST 28 ALT 25 Alkaline Phosphatase 55 Total Protein 6.2 L Albumin 4.0 Lipase 21 TSH 1.77 Urine Opiates Screen Not Detected Ur Buprenorphine Scrn Not Detected Ur Oxycodone Screen Not Detected Urine Methadone Screen Not Detected Urine Fentanyl Screen POSITIVE H Ur Barbiturates Screen POSITIVE H Ur Phencyclidine Scrn Not Detected Ur Amphetamines Screen Not Detected U Benzodiazepines Scrn Not Detected Urine Cocaine Screen POSITIVE H U Marijuana (THC) Screen POSITIVE H Ethyl Alcohol < 10 Assessment and Plan (1) Alcohol withdrawal: Status: Acute (2) Polysubstance abuse: Status: Acute Plan Patient is a 34-year-old male with a past medical history significant for alcohol use disorder and polysubstance use disorder, who presented to the ED requesting detox from alcohol. 1.Alcohol withdrawal/alcohol abuse - CIWA scores elevated despite protocol -discussed with pharmacy; we will restart protocol with IM -p.r.n. Valium as indicated - monitor CIWA every 4 hours 2.Polysubstance abuse - UTox positive for fentanyl, barbiturates, cocaine and marijuana - addiction med consult appreciated Full code VTE prophylaxis: Lovenox Patient with alcohol withdrawal secondary to alcohol abuse, requiring admission for at least 2 midnight stay for medical management of alcohol withdrawal. Quality Stroke Does the patient have a stroke diagnosis?: No VTE Prior VTE?: No VTE Risk Level:: Medical - moderate - high VTE Device Contraindication: Treatment Not Indicated VTE Drug Contraindication: N/A - Med Ordered
[2025-06-09] MEDS: Flu Vacc TS2025-26(6mo up)/PF 0.5 ML SYRINGE IM (17:03)
[2025-06-09] MEDS: diazePAM 10 MG/2 ML CARTRIDGE IVPUSH ×2 (17:13→22:11)
[2025-06-10 04:00] VITALS: BP 140/80; PULSE 64; RESP 18; TEMP 36.3; O2SAT 97
[2025-06-10] MEDS: diazePAM 10 MG/2 ML CARTRIDGE IVPUSH ×3 (04:08→17:53)
[2025-06-10 05:43] LABS: Hematocrit 41.1 % (42.0-52.0); Hemoglobin 14.1 g/dl (14.0-18.0); Mean Corpuscular HGB Conc 34.3 g/dl (31.0-36.0); Mean Corpuscular Hemoglobin 33.6 pg (27.0-33.0); Mean Corpuscular Volume 97.9 fL (80.0-98.0); NRBC Abs Auto 0.000 X10*3/uL (0.0-0.012); NRBC Pct Auto 0.0 /100WBC (0.0-0.2); Platelet Count 213 X10*3/uL (160-400); Red Blood Count 4.20 X10*6/uL (4.60-5.80); White Blood Count 4.3 X10*3/uL (4.8-10.8)
[2025-06-10 05:59] LABS: Anion Gap 9 (12-20); Blood Urea Nitrogen 7 mg/dL (9-16); Calcium 8.7 mg/dL (8.4-10.2); Carbon Dioxide 27 mmol/L (22-29); Chloride 107 mmol/L (96-108); Creatinine Clr Calc Pharmacy 143.3; Estimated Glomerular Filt Rate > 60; Potassium 3.8 mmol/L (3.3-5.1); Sodium 139 mmol/L (135-145)
[2025-06-10] MEDS: 0.9 % Sodium Chloride Flush 3 ML SYRINGE IVFLUSH ×2 (08:14→17:03)
[2025-06-10] MEDS: oxyCODONE HCl Immed Release 5 MG TABLET PO (08:15)
--- NOTE | 2025-06-10 08:30 | PC.NURSE ---
adjusted diet order for safety tray (per report patient has been throwing things when agitated,
[2025-06-10 08:48] VITALS: BP 118/86; PULSE 66; RESP 20; TEMP 37; O2SAT 94
--- NOTE | 2025-06-10 12:39 | PC.NURSE ---
Patient currently undergoing treatment for alcohol withdrawal, last CIWA score 17, patient expressed desire to leave AMA, stating he feels he is getting sicker, c/o nausea and vomiting, unable to keep food down. Patient was offered zofran but refused stating antiemetic make him even more nauseous. Provider notified and at bedside, patient educated on the risks of leaving AMA, and has agreed to stay. Provider ordered compazine to help with nausea and vomiting but patient refused the medication. Patient was offered PRN pain meds but also refused stating he does not want to take anything at this time.
--- NOTE | 2025-06-10 14:07 | HO.PM.IMPN ---
Subjective Subjective Date of Service: 06/10/25 Interval History: Still scoring 15-17 on CIWA. No seizures Review of Systems Unable to obtain secondary to agitation Physical Exam Vital Signs: Vital Signs: Last Vital Signs Temp 98.6 F 06/10/25 08:48 Pulse 66 06/10/25 08:48 Resp 20 06/10/25 08:48 BP 118/86 06/10/25 08:48 Pulse Ox 94 06/10/25 08:48 O2 Del Method Room Air 06/10/25 08:48 BMI result Body Mass Index 22.8 Const: Other: Awake alert no acute distress Resp: Other: Clear to auscultation bilaterally no rales rhonchi or wheezes Cardio: Other: No S4; positive S1-S2; no S3 murmurs rubs or gallops GI: Other: No S4; positive S1-S2; no S3 murmurs rubs or gallops Extrem: Other: No edema bilaterally Objective Data Active Medications Acetaminophen (Acetaminophen 325 Mg Tablet) 975 mg PO Q6H PRN PRN Reason: Pain, Mild 1-3,fever,headache Last Admin: 06/09/25 04:51 Dose: 975 mg Documented By: N-MATTE Calcium Carbonate (Calcium Carbonate 750 Mg Tab.Chew) 750 mg PO Q4H PRN PRN Reason: Heartburn Diazepam (Diazepam 10 Mg/2 Ml Cartridge) 10 mg IVPUSH Q4H PRN PRN Reason: agitation Last Admin: 06/10/25 09:45 Dose: 10 mg Documented By: ROLA Enoxaparin Sodium (Enoxaparin Sodium 40 Mg/0.4 Ml Syringe) 40 mg SUBCUT Q24H [facility] Last Admin: 06/10/25 08:16 Dose: 40 mg Documented By: ROLA Folic Acid (Folic Acid 1 Mg Tablet) 1 mg PO DAILY [facility] Stop: 06/12/25 08:59 Last Admin: 06/10/25 08:15 Dose: 1 mg Documented By: ROLA Gabapentin (Gabapentin 100 Mg Capsule) 100 mg PO TID PRN PRN Reason: anxiety/restlessness Magnesium Hydroxide (Milk Of Magnesia 30 Ml Oral.Susp) 30 ml PO DAILY PRN PRN Reason: Constipation Melatonin (Melatonin 3 Mg Tablet) 6 mg PO BEDTIME PRN PRN Reason: Insomnia Multivitamins/Vitamin C (Multivitamin Tablet) 1 tab PO DAILY [facility] Stop: 06/12/25 08:59 Last Admin: 06/10/25 08:15 Dose: 1 tab Documented By: ROLA Nicotine Polacrilex (Nicotine Polacrilex 2 Mg Gum) 2 mg BUCCAL Q2H PRN PRN Reason: Nicotine Cravings Nicotine Polacrilex (Nicotine Polacrilex 2 Mg Gum) 2 mg BUCCAL Q1H PRN PRN Reason: Nicotine Cravings Last Admin: 06/09/25 17:04 Dose: 2 mg Documented By: JENNIFER Ondansetron HCl (Ondansetron Hcl 4 Mg/2 Ml Vial) 4 mg IVPUSH Q4H PRN PRN Reason: Nausea and Vomiting Oxycodone HCl (Oxycodone Hcl Immed Release 5 Mg Tablet) 5 mg PO Q6H PRN PRN Reason: Pain, Severe (Pain Scale 7-10) Last Admin: 06/10/25 08:15 Dose: 5 mg Documented By: ROLA Phenobarbital (Phenobarbital 30 Mg Tablet) 30 mg PO BID [facility] Stop: 06/13/25 21:01 Phenobarbital (Phenobarbital 30 Mg Tablet) 30 mg PO DAILY [facility] Stop: 06/15/25 09:01 Phenobarbital (Phenobarbital 30 Mg Tablet) 60 mg PO BID [facility] Stop: 06/11/25 21:01 Last Admin: 06/10/25 08:15 Dose: 60 mg Documented By: ROLA Prochlorperazine Edisylate (Prochlorperazine Edisylate 10 Mg/2 Ml Vial) 10 mg IVPUSH Q4H PRN PRN Reason: Nausea and Vomiting Sodium Chloride (0.9 % Sodium Chloride Flush 3 Ml Syringe) 3 ml IVFLUSH QSHIFT [facility] Last Admin: 06/10/25 08:14 Dose: 3 ml Documented By: ROLA Thiamine HCl (Thiamine Hcl 100 Mg Tablet) 100 mg PO DAILY [facility] Stop: 06/12/25 08:59 Last Admin: 06/10/25 08:15 Dose: 100 mg Documented By: ROLA Tramadol HCl (Tramadol Hcl 50 Mg Tablet) 50 mg PO Q6H PRN PRN Reason: Pain, Moderate(Pain Scale 4-6) Last Admin: 09/11/25 11:40 Dose: 50 mg Documented By: ROLA Labs 06/10/25 05:08 06/10/25 05:08 Labs: Laboratory Results - last 24 hr 06/10/25 05:08 MCV 97.9 MCH 33.6 H MCHC 34.3 RDW 13.2 Plt Count 213 MPV 8.8 L Absolute Nucleated RBC 0.000 Nucleated RBC % (auto) 0.0 Anion Gap 9 L Estim Creat Clear Calc 143.3 Estimated GFR > 60 Random Glucose 106 Calcium 8.7 Assessment and Plan (1) Alcohol withdrawal: Status: Acute (2) Alcohol abuse: Status: Acute Plan Patient is a 34-year-old male with a past medical history significant for alcohol use disorder and polysubstance use disorder, who presented to the ED requesting detox from alcohol. 1.Alcohol withdrawal/alcohol abuse - CIWA scores elevated despite protocol -discussed with pharmacy; we will restart protocol with IM; good response -p.r.n. Valium as indicated - monitor CIWA every 4 hours 2.Polysubstance abuse - UTox positive for fentanyl, barbiturates, cocaine and marijuana - addiction med consult appreciated Full code VTE prophylaxis: Lovenox Patient with alcohol withdrawal secondary to alcohol abuse, requiring admission for at least 2 midnight stay for medical management of alcohol withdrawal. Quality Stroke Does the patient have a stroke diagnosis?: No VTE Prior VTE?: No VTE Risk Level:: Medical - moderate - high VTE Device Contraindication: Treatment Not Indicated VTE Drug Contraindication: N/A - Med Ordered
[2025-06-10 16:00] VITALS: TEMP 36.5
[2025-06-10 17:13] VITALS: BP 125/95; PULSE 72; RESP 20; TEMP 37.2; O2SAT 97
--- NOTE | 2025-06-10 18:25 | MHC.RECOVRN ---
TW attempted to meet with pt at approximately 430pm to offer continued support related to substance use. On approach pt was laying in bed with eyes closed, in no apparent distress. Respirations were even and unlabored, no restlessness or diaphoresis noted. Tw called pts name twice. Pt did not acknowledge TW, however he rolled over and turned to the opposite direction and began to snore. Pt was allowed to continue to rest. TW is available for further support as needed
--- NOTE | 2025-06-11 03:19 | PC.NURSE ---
late entry - pt left AMA 06/10/25 around 1830. IV removed, escorted out by security.
== END 2025-06-10 18:30 | disposition left against medical advice (07) | DRG 770 ==
LOC: HO.ED 06-09 00:03 → HO.EDOVER 06-09 00:09 → HO.S3 06-09 15:32
PROVIDERS: Admitting Provider Physician Assistant; Emergency Provider Emergency Medicine; Visit Provider Hospitalist
DX: F10.139 Alcohol abuse with withdrawal, unspecified (principal); F11.93 Opioid use, unspecified with withdrawal; F17.210 Nicotine dependence, cigarettes, uncomplicated; Z71.6 Tobacco abuse counseling; F19.10 Other psychoactive substance abuse, uncomplicated; Z71.51 Drug abuse counseling and surveillance of drug abuser; Z71.41 Alcohol abuse counseling and surveillance of alcoholic
CPT/HCPCS: 36415; 80048; 80053; 80307; 83690; 83735; 84443; 85025; 85027; 90656; 99285; J1650; J2560; J3360; J3411; S9485

== ENCOUNTER → 2025-06-09 00:08 | Outpatient (BNV) | payer OTHER, SELFPAY | PROVIDERS: Admitting Provider Physician Assistant; Emergency Provider Emergency Medicine; Visit Provider Hospitalist | DX: F10.939 Alcohol use, unspecified with withdrawal, unspecified (principal); F10.10 Alcohol abuse, uncomplicated; F19.10 Other psychoactive substance abuse, uncomplicated; F10.930 Alcohol use, unspecified with withdrawal, uncomplicated | CPT/HCPCS: 99223; 99233 ==

== ENCOUNTER → 2025-06-09 00:08 | Outpatient (BNV) | payer OTHER, SELFPAY | PROVIDERS: Admitting Provider Physician Assistant; Emergency Provider Emergency Medicine; Visit Provider Nurse Practitioner Psychiatric/Mental Health | DX: F10.930 Alcohol use, unspecified with withdrawal, uncomplicated (principal) | CPT/HCPCS: 99232 ==